=== PATIENT | female | born 1985 | race Caucasian/White ===

== ENCOUNTER 2018-09-16 15:29 | Emergency (ER) | payer OTHER ==
[2018-09-16 16:40] LABS: BASOPHIL % 0.2 % (0.0-0.4); Basophil (Absolute #) 0.02 (0-0.4); Eosinophil % 2.1 % (0.00-5.0); Eosinophil (Absolute #) 0.19 (0-0.5); Granulocyte Absolute (ANC) 5.31 (1.4-6.9); Granulocytes % 58.6 % (36.0-66.0); Hematocrit 37.8 % (35-47); Hemoglobin 12.2 gm/dl (12.0-16.0); Lymphocyte (Absolute #) 2.81 (1.0-4.6); Mean Cell Volume 93.1 fl (78-100); Mean Corpuscular Hgb Concent. 32.3 g/dl (32-36); Mean Platelet Volume 10.6 fl (6-9.5); Monocyte (Absolute #) 0.73 (0.0-1.3); Monocytes % 8.1 % (0.0-12.0); Platelet Count 298 K/mm3 (150-450); Red Blood Count 4.06 M/mm3 (4.1-5.4); Red Cell Distribution Width 13.9 % (11.5-14.0); White Blood Count 9.1 K/mm3 (4.0-10.5)
[2018-09-16 16:46] LABS: Appearance CLEAR (CLEAR); Bilirubin NEGATIVE (NEGATIVE); Blood SMALL Ery/ul (0-5); Epithelial Cells RARE /HPF (FEW); Glucose NEGATIVE (NEGATIVE); Ketones NEGATIVE (NEGATIVE); Leukocyte Esterase NEGATIVE (NEGATIVE); Mucus SLIGHT /HPF (NEGATIVE); Nitrite NEGATIVE (NEGATIVE); Protein,Urine Dip NEGATIVE (Negative); Specific Gravity 1.025 (1.005-1.025); Urobilinogen NEGATIVE mg/dL (0-1)
[2018-09-16 16:57] LABS: ALKALINE PHOSPHATASE 67 U/L (38-126); ANION GAP 12.2 MEQ/L (5-15); BLOOD UREA NITROGEN 16 mg/dL (7-17); CHLORIDE 101 mmol/L (98-107); Calcium 9.3 mg/dL (8.4-10.2); Carbon Dioxide 30 mmol/L (22-30); Glucose 88 mg/dL (74-106); LIPASE 80 U/L (23-300); SGOT/AST 25 U/L (14-36); SGPT/ALT 32 U/L (0-35); SODIUM 140 mmol/L (137-145); Total Protein 7.2 g/dL (6.3-8.2)
[2018-09-16] MEDS ORDERED: TYLENOL EXTRA STRENGTH 500 MG ONE (17:09)
[2018-09-16] MEDS ORDERED: TYLENOL EXTRA STRENGTH 500 MG PO STA (17:09)
--- NOTE | 2018-09-16 18:29 | ERPHSYRPT ---
- History of Present Illness Historian: patient Exam Limitations: no limitations Patient Subjective Stated Complaint: generalized pain in in her abdomen and lower left back for an unspecified amount of time, more pain on the RLQ than the left, diarrhea, denies vomiting Triage Nursing Assessment: Pain in right and left lower and right upper quadrants with palpatation, pain has been off and on for some time now, vitals wnl, rates pain as a 6/10 when she bends over, doesn't appear to be in any distress Timing/Duration: week(s) Activities at Onset: none Quality: aching, cramping, stabbing Abdominal Pain Onset Location: LUQ, LLQ, flank Pain Radiation: RUQ, LUQ, RLQ, LLQ, flank, back Severity of Pain-Max: moderate Severity of Pain-Current: moderate Modifying Factors: Improves With: analgesics Associated Symptoms: nausea <MAYCOL CISNEROS - Last Filed: 09/16/18 18:55> <BARBIE GLASGOW - Last Filed: 09/16/18 19:59> - History of Present Illness Physician History: Pt is a 33 y/o female with a h/o three weeks of abdominal and lower back pain. Pt states, the worse is on the LUQ and LLQ, and some L CVA tenderness, but the pain is spread over abdomen and back. Pt states, has increase in urine out put and she is having increase in amount of urine as well. 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 (MAYCOL CISNEROS) Allergies/Adverse Reactions: No Known Drug Allergies Allergy (Verified 09/16/18 16:01) Home Medications: Propranolol HCl 10 mg PO UD 09/16/18 [History] - Review of Systems Constitutional: No Fever, No Chills Eyes: No Symptoms Ears, Nose, & Throat: No Symptoms Respiratory: No Cough, No Dyspnea Cardiac: No Chest Pain, No Edema, No Syncope Abdominal/Gastrointestinal: Abdominal Pain, Nausea Genitourinary Symptoms: Flank Pain, No Dysuria Musculoskeletal: No Back Pain, No Neck Pain Neurological: No Dizziness, No Focal Weakness, No Sensory Changes <MAYCOL CISNEROS - Last Filed: 09/16/18 18:55> - Past Medical History Pertinent Past Medical History: Yes Cardiac History: Hypertension Other Medical History: PCOS - Past Surgical History Past Surgical History: Yes Female Surgical History: Section - Social History Smoking Status: Smoker, status unknown Exposure to second hand smoke: No Drug Use: none Patient Lives Alone: No - Female History Hx Last Menstrual Period: 09/09/2018 Hx Now: No (tubal) <CHAPOMAYCOL - Last Filed: 09/16/18 18:55> - Physical Exam General Appearance: no apparent distress, alert Eye Exam: PERRL/EOMI, eyes nml inspection Ears, Nose, Throat Exam: normal ENT inspection, pharynx normal, moist mucous membranes Neck Exam: normal inspection, non-tender, supple, full range of motion Respiratory Exam: normal breath sounds, lungs clear, No respiratory distress Cardiovascular Exam: regular rate/rhythm, normal heart sounds Gastrointestinal/Abdomen Exam: soft, tenderness (diffuse) Back Exam: normal inspection, normal range of motion, No CVA tenderness, No vertebral tenderness Extremity Exam: normal inspection, normal range of motion, pelvis stable Neurologic Exam: alert, oriented x 3, cooperative, normal mood/affect, nml cerebellar function, sensation nml, No motor deficits SpO2: 99 <MAYCOL CISNEROS - Last Filed: 09/16/18 18:55> - Nursing Vital Signs Nursing Vital Signs: Initial Vital Signs Temperature 99.0 F 09/16/18 15:45 Pulse Rate 57 L 09/16/18 15:45 Blood Pressure 122/71 09/16/18 15:45 O2 Sat by Pulse Oximetry 99 09/16/18 15:45 Pain Scale Pain Intensity 6 - Course Nursing assessment & vital signs reviewed: Yes <MAYCOL CISNEROS - Last Filed: 09/16/18 18:55> - CT Exams Abdomen/Pelvis CT Interpretation: Discussed w/radiologist (CT of the abdomen and pelvis: Impression6.2 cm left ovarian cyst and 14.5 cm splenomegaly remaining abdomen/ pelvis negative.) <BARBIE GLASGOW - Last Filed: 09/16/18 19:59> Ordered Tests: Active Orders 24 hr Category Date Time Status ABDOMEN AND PELVIS W&WO CONTRA [CT] Stat Exams 09/16/18 18:38 Taken CBC W DIFF Stat Lab 09/16/18 16:37 Completed CMP Stat Lab 09/16/18 16:37 Completed HCG QUALITATIVE,SERUM Stat Lab 09/16/18 Completed LIPASE Stat Lab 09/16/18 16:37 Completed UA W/RFX UR CULTURE Stat Lab 09/16/18 16:29 Completed Medication Summary Generic Name Dose Route Start Last Admin Trade Name Freq PRN Reason Stop Dose Admin Naproxen 500 mg 09/16/18 19:58 Naprosyn 500 Mg PO 09/16/18 19:59 STAT ONE Discontinued Medications Generic Name Dose Route Start Last Admin Trade Name Freq PRN Reason Stop Dose Admin Acetaminophen 1,000 mg 09/16/18 17:09 09/16/18 17:10 Tylenol Extra Strength 500 Mg PO 09/16/18 17:10 1,000 mg STAT STA Administration Acetaminophen Confirm 09/16/18 17:09 Tylenol Extra Strength 500 Mg Administered 09/16/18 17:10 Dose 1,000 mg .ROUTE .[employer] Lab/Rad Data: Laboratory Result Diagrams 09/16/18 16:37 09/16/18 16:37 Laboratory Results 09/16/18 09/16/18 09/16/18 Range/Units Unknown 16:37 16:37 WBC 9.1 (4.0-10.5) K/mm3 RBC 4.06 L (4.1-5.4) M/mm3 Hgb 12.2 (12.0-16.0) gm/dl Hct 37.8 (35-47) % MCV 93.1 (78-100) fl MCH 30.0 (26-32) pg MCHC 32.3 (32-36) g/dl RDW 13.9 (11.5-14.0) % Plt Count 298 (150-450) K/mm3 MPV 10.6 H (6-9.5) fl Gran % 58.6 (36.0-66.0) % Eos # (Auto) 0.19 (0-0.5) Absolute Lymphs (auto) 2.81 (1.0-4.6) Absolute Monos (auto) 0.73 (0.0-1.3) Lymphocytes % 31.0 (24.0-44.0) % Monocytes % 8.1 (0.0-12.0) % Eosinophils % 2.1 (0.00-5.0) % Basophils % 0.2 (0.0-0.4) % Absolute Granulocytes 5.31 (1.4-6.9) Basophils # 0.02 (0-0.4) Sodium 140 (137-145) mmol/L Potassium 4.0 (3.5-5.1) mmol/L Chloride 101 (98-107) mmol/L Carbon Dioxide 30 (22-30) mmol/L Anion Gap 12.2 (5-15) MEQ/L BUN 16 (7-17) mg/dL Creatinine 0.70 (0.52-1.04) mg/dL Estimated GFR > 60.0 ML/MIN Glucose 88 (74-106) mg/dL Calcium 9.3 (8.4-10.2) mg/dL Total Bilirubin 0.30 (0.2-1.3) mg/dL AST 25 (14-36) U/L ALT 32 (0-35) U/L Alkaline Phosphatase 67 (38-126) U/L Serum Total Protein 7.2 (6.3-8.2) g/dL Albumin 4.0 (3.5-5.0) g/dL Lipase 80 (23-300) U/L Serum , Qual NEGATIVE (Negative) Urine Color (YELLOW) Urine Appearance (CLEAR) Urine pH (5-6) Ur Specific [place] (1.005-1.025) Urine Protein (Negative) Urine Ketones (NEGATIVE) Urine Blood (0-5) Celso/ul Urine Nitrite (NEGATIVE) Urine Bilirubin (NEGATIVE) Urine Urobilinogen (0-1) mg/dL Ur Leukocyte Esterase (NEGATIVE) Urine WBC (Auto) (0-5) /HPF Urine RBC (Auto) (0-2) /HPF U Epithel Cells (Auto) (FEW) /HPF Urine Bacteria (Auto) (NEGATIVE) /HPF Urine Mucus (Auto) (NEGATIVE) /HPF Urine Culture Reflexed (NO) Urine Glucose (NEGATIVE) mg/dL 09/16/18 Range/Units 16:29 WBC (4.0-10.5) K/mm3 RBC (4.1-5.4) M/mm3 Hgb (12.0-16.0) gm/dl Hct (35-47) % MCV (78-100) fl MCH (26-32) pg MCHC (32-36) g/dl RDW (11.5-14.0) % Plt Count (150-450) K/mm3 MPV (6-9.5) fl Gran % (36.0-66.0) % Eos # (Auto) (0-0.5) Absolute Lymphs (auto) (1.0-4.6) Absolute Monos (auto) (0.0-1.3) Lymphocytes % (24.0-44.0) % Monocytes % (0.0-12.0) % Eosinophils % (0.00-5.0) % Basophils % (0.0-0.4) % Absolute Granulocytes (1.4-6.9) Basophils # (0-0.4) Sodium (137-145) mmol/L Potassium (3.5-5.1) mmol/L Chloride (98-107) mmol/L Carbon Dioxide (22-30) mmol/L Anion Gap (5-15) MEQ/L BUN (7-17) mg/dL Creatinine (0.52-1.04) mg/dL Estimated GFR ML/MIN Glucose (74-106) mg/dL Calcium (8.4-10.2) mg/dL Total Bilirubin (0.2-1.3) mg/dL AST (14-36) U/L ALT (0-35) U/L Alkaline Phosphatase (38-126) U/L Serum Total Protein (6.3-8.2) g/dL Albumin (3.5-5.0) g/dL Lipase (23-300) U/L Serum , Qual (Negative) Urine Color YELLOW (YELLOW) Urine Appearance CLEAR (CLEAR) Urine pH 6.0 (5-6) Ur Specific [place] 1.025 (1.005-1.025) Urine Protein NEGATIVE (Negative) Urine Ketones NEGATIVE (NEGATIVE) Urine Blood SMALL (0-5) Celso/ul Urine Nitrite NEGATIVE (NEGATIVE) Urine Bilirubin NEGATIVE (NEGATIVE) Urine Urobilinogen NEGATIVE (0-1) mg/dL Ur Leukocyte Esterase NEGATIVE (NEGATIVE) Urine WBC (Auto) 3-5 (0-5) /HPF Urine RBC (Auto) NONE (0-2) /HPF U Epithel Cells (Auto) RARE (FEW) /HPF Urine Bacteria (Auto) NONE (NEGATIVE) /HPF Urine Mucus (Auto) SLIGHT (NEGATIVE) /HPF Urine Culture Reflexed NO (NO) Urine Glucose NEGATIVE (NEGATIVE) mg/dL - Progress Progress: unchanged <MAYCOL CISNEROS - Last Filed: 09/16/18 18:55> <BARBIE GLASGOW - Last Filed: 09/16/18 19:59> - Progress Progress Note: 09/16/18 18:43 Pt had CBC, CMP and UA that were all normal, with no leukocytosis or signs of UTI. CT of te Abdomen w and wo contrast was ordered. 09/16/18 18:55 Pt was signed out to Dr Glasgow. (MAYCOL CISNEROS) 09/16/18 19:51 33-year-old white female previously seen by Dr. Cisneros patient is complaining of generalized pain in her abdomen and lower back for unspecified amount of time approximately 3 weeks she has the pain is worse on the left upper quadrant and left lower quadrant and some left CVA tenderness but then it spreads across her abdomen and back patient with some tenderness in the left lower quadrant and the left upper quadrant. Patient was given Tylenol by Dr. Cisneros patient has been getting up and down in going to the bathroom without problems she does not appear to be in acute distress Patient's labs white blood cell 9.1 hemoglobin 12.2 hematocrit 37.8 platelets 298 Chemistry sodium 140 potassium 4.0 chloride 101 bicarbonate 30 BUN 16 creatinine 0.7 glucose is 88 patient's urinalysis remarkable for 3-5 white cells negative nitrites patient with a CT of the abdomen which is remarkable for is 6.2 cm left ovarian cyst and a 14.5 cm splenomegaly remaining abdomen and pelvis are negative. Impression 1 left lower quadrant and left upper quadrant abdominal pain. 2. 6 cm left ovarian cyst. 3.splenomegaly. Plan patient is already being given Tylenol Will give patient Naprosyn 500 mg orally 1. Will write a prescription for Naprosyn 500 mg orally twice a day #10. Patient may also take Tylenol every 4 hours. Patient has been advised to follow-up with her family doctor or FOOT DRILL OPERATOR physician a list of local physicians will be provided to her. (BARBIE GLASGOW) <MAYCOL CISNEROS - Last Filed: 09/16/18 18:55> - Departure Departure Disposition: Home Critical Care Time: No <BARBIE GLASGOW - Last Filed: 09/16/18 19:59> - Departure Clinical Impression: Left ovarian cyst, Splenomegaly Abdominal pain Qualifiers: Abdominal location: left lower quadrant Qualified Code(s): R10.32 - Left lower quadrant pain Condition: Fair Referrals: DOCTOR,NO FAMILY [Primary Care Provider] - Additional Instructions: Return home. Plenty of fluids clear fluids only 24-48 hours if abdominal pain nausea or vomiting. Naprosyn 500 mg orally twice a day with food as needed for pain. Tylenol every 4 hours as needed for pain. No contact sports or contact activities. Follow-up with your family doctor and/or your FOOT DRILL OPERATOR physician (list). Return for acute distress or for severe symptoms. Prescriptions: Naproxen 500 mg [Naprosyn 500 MG] 500 mg PO BIDPRN PRN #10 tablet PRN Reason: abdominal pain
[2018-09-16 19:52] VITALS: O2SAT 97
[2018-09-16] MEDS ORDERED: Naprosyn 500 MG PO ONE (19:58)
[2018-09-16 20:15] VITALS: BP 133/70; PULSE 62
--- NOTE | 2018-09-17 08:38 | XRAY ---
Indication: Left lower pelvic/back pain one month. Bloating. History of polycystic ovary syndrome. Multiple contiguous axial images obtained through the abdomen and pelvis prior to and following 80 cc Isovue 370 contrast. Enteric contrast also used. Comparison: None Lung bases are clear. Heart is not enlarged. Noncontrasted images are negative for pathologic visceral calcifications/calculi. Contrasted stomach and bowel loops appear nonobstructed. Normal appendix. Mild diffuse scattered colonic fecal debris throughout. 6.2 cm left ovary cyst. No free fluid/air. Spleen is enlarged measuring 14.5 cm in greatest axial dimension. Postcontrast images demonstrate normal visceral enhancement and renal excretion. Remaining liver, gallbladder, pancreas, spleen, adrenal glands, kidneys, ureters, bladder, uterus, and aorta appear unremarkable. No pathologic retroperitoneal lymphadenopathy. Osseous structures intact. No ventral or inguinal hernias. Impression: 1. 6.2 cm left ovary cyst. 2. Incidental splenomegaly and mild fecal stasis. 3. Remaining CT abdomen/pelvis with and without contrast exam is negative. CT DI 23.68
== END 2018-09-16 20:32 | disposition home or self-care (01) ==
LOC: ED 15:29
DX: N83.202 Unspecified ovarian cyst, left side (principal); R10.32 Left lower quadrant pain
CPT/HCPCS: 36415; 74178; 80053; 81001; 81025; 83690; 85025; 99284; A9270-GY

== ENCOUNTER 2020-10-25 10:53 | Emergency (ER) | payer OTHER ==
[2020-10-25 11:09] VITALS: PULSE 72
--- NOTE | 2020-10-25 11:24 | ERPHSYRPT ---
- History of Present Illness Historian: patient Patient Subjective Stated Complaint: pt here for urgency, and fregency of u rnination. co lower abd cramping for 2 days Triage Nursing Assessment: pt alert, resp easy ,skin w/d/p. abd soft. Physician History: 35yo wf w urinary frequency/urgency/suprapubic cramping x2 days wo dysuria/hematuria/fever. She denies N/V/D/fever. Pt has chronic back pain and has had a BTL. Timing/Duration: other (2 days) Quality: cramping Abdominal Pain Onset Location: suprapubic Pain Radiation: no radiation Severity of Pain-Max: mild Severity of Pain-Current: mild Modifying Factors: Improves With: nothing Associated Symptoms: back, No chest pain, No diaphoresis, No diarrhea, No fever/chills, No fatigue, No headache, No heartburn, No loss of appetite, No nausea, No neck pain, No rash, No shortness of breath, No syncope, No vomiting, No weakness Previous symptoms: no prior history Allergies/Adverse Reactions: No Known Drug Allergies Allergy (Verified 10/25/20 11:09) Home Medications: Propranolol HCl 10 mg PO UD 09/16/18 [History] Metformin HCl 500 mg [Glucophage 500 MG] 1 ea DAILY 10/25/20 [History] cloNIDine HCL [Clonidine HCl] 1 ea DAILY 10/25/20 [History] Hx Tetanus, Diphtheria Vaccination/Date Given: No Hx Influenza Vaccination/Date Given: No Hx Pneumococcal Vaccination/Date Given: No Immunizations Up to Date: Yes Travel Risk - International Travel Have you traveled outside of the country in past 3 weeks: No - Coronavirus Screening Are you exhibiting any of the following symptoms?: No Close contact with a COVID-19 positive Pt in past 14-21 Days: No - Vaccine Status Have you recieved a Covid-19 vaccination: No - Review of Systems Constitutional: No Symptoms Eyes: No Symptoms Ears, Nose, & Throat: No Symptoms Respiratory: No Symptoms Cardiac: No Symptoms Abdominal/Gastrointestinal: No Symptoms, Abdominal Pain Genitourinary Symptoms: No Symptoms, Frequency, Urgency Musculoskeletal: No Symptoms Skin: No Symptoms Neurological: No Symptoms Psychological: No Symptoms Endocrine: No Symptoms Hematologic/Lymphatic: No Symptoms Immunological/Allergic: No Symptoms - Past Medical History Pertinent Past Medical History: Yes Cardiac History: Hypertension Other Medical History: PCOS - Past Surgical History Past Surgical History: Yes Female Surgical History: Section, Tubal Ligation - Social History Smoking Status: Never smoker Exposure to second hand smoke: No Drug Use: none Patient Lives Alone: No Significant Family History: no pertinent family hx - Female History Hx Last Menstrual Period: now Hx Now: No - Nursing Vital Signs Nursing Vital Signs: Initial Vital Signs Temperature 96.8 F 10/25/20 11:04 Pulse Rate 72 10/25/20 11:04 Respiratory Rate 18 10/25/20 11:04 Blood Pressure 131/74 10/25/20 11:04 O2 Sat by Pulse Oximetry 97 10/25/20 11:04 Pain Scale Pain Intensity 2 - Physical Exam General Appearance: no apparent distress Eye Exam: PERRL/EOMI, eyes nml inspection Ears, Nose, Throat Exam: normal ENT inspection, TMs normal, pharynx normal, moist mucous membranes Neck Exam: normal inspection, non-tender, supple, full range of motion, mass, No meningismus Respiratory Exam: normal breath sounds, lungs clear, airway intact, No respi ratory distress Cardiovascular Exam: regular rate/rhythm, normal heart sounds, No murmur Gastrointestinal/Abdomen Exam: soft, tenderness (Morbidly obese/Mild suprapubic TTP, no guarding or rebound) Pelvic Exam: not done Back Exam: normal inspection, normal range of motion, No CVA tenderness, No vert ebral tenderness Extremity Exam: normal inspection, normal range of motion Neurologic Exam: alert, oriented x 3, cooperative, neurology epilepsy physician II-XII nml as tested, normal mood/affect Skin Exam: normal color, warm, dry, No rash Lymphatic Exam: No adenopathy SpO2 Interpretation: normal SpO2: 97 O2 Delivery: Room Air - Course Nursing assessment & vital signs reviewed: Yes - CT Exams Abdomen/Pelvis CT Interpretation: Discussed w/radiologist (Known L ovarian cyst, slightly larger) Ordered Tests: Active Orders 24 hr Category Date Time Status ABDOMEN AND PELVIS W/0 CONTRAS [CT] Stat Exams 10/25/20 13:00 Completed AMYLASE Stat Lab 10/25/20 12:10 Completed CBC W DIFF Stat Lab 10/25/20 12:10 Completed CMP Stat Lab 10/25/20 12:10 Completed HCG,QUALITATIVE URINE Stat Lab 10/25/20 11:23 Completed LIPASE Stat Lab 10/25/20 12:10 Completed UA W/RFX UR CULTURE Stat Lab 10/25/20 11:23 Completed Medication Summary Discontinued Medications Generic Name Dose Route Start Last Admin Trade Name Jayla PRN Reason Stop Dose Admin Ketorolac Tromethamine 60 mg 10/25/20 13:16 10/25/20 13:32 Toradol 30 Mg Injection IM 10/25/20 13:17 60 mg STAT ONE Administration Ketorolac Tromethamine Confirm 10/25/20 13:29 Toradol 30 Mg Injection Administered 10/25/20 13:30 Dose 60 mg .ROUTE .[employer]-MED ONE Lab/Rad Data: Laboratory Result Diagrams 10/25/20 12:10 10/25/20 12:10 Laboratory Results 10/25/20 10/25/20 10/25/20 Range/Units 12:10 12:10 11:23 WBC 7.7 (4.0-10.5) K/mm3 RBC 4.38 (4.1-5.4) M/mm3 Hgb 13.2 (12.0-16.0) gm/dl Hct 41.1 (35-47) % MCV 93.8 (78-100) fl MCH 30.1 (26-32) pg MCHC 32.1 (32-36) g/dl RDW 13.6 (11.5-14.0) % Plt Count 318 (150-450) K/mm3 MPV 10.5 (7.5-11.0) fl Gran % 64.0 (36.0-66.0) % Eos # (Auto) 0.17 (0-0.5) Absolute Lymphs (auto) 1.99 (1.0-4.6) Absolute Monos (auto) 0.58 (0.0-1.3) Lymphocytes % 25.9 (24.0-44.0) % Monocytes % 7.6 (0.0-12.0) % Eosinophils % 2.2 (0.00-5.0) % Basophils % 0.3 (0.0-0.4) % Absolute Granulocytes 4.91 (1.4-6.9) Basophils # 0.02 (0-0.4) Sodium 138 (137-145) mmol/L Potassium 4.6 (3.5-5.1) mmol/L Chloride 100 (98-107) mmol/L Carbon Dioxide 31 H (22-30) mmol/L Anion Gap 12.0 (5-15) MEQ/L BUN 16 (7-17) mg/dL Creatinine 0.74 (0.52-1.04) mg/dL Estimated GFR > 60.0 ML/MIN Glucose 97 (74-106) mg/dL Calcium 9.6 (8.4-10.2) mg/dL Total Bilirubin 0.30 (0.2-1.3) mg/dL AST 31 (14-36) U/L ALT 31 (0-35) U/L Alkaline Phosphatase 68 (38-126) U/L Serum Total Protein 7.5 (6.3-8.2) g/dL Albumin 4.3 (3.5-5.0) g/dL Amylase 38 (30-110) U/L Lipase 120 (23-300) U/L Urine Color (YELLOW) Urine Appearance (CLEAR) Urine pH (5-6) Ur Specific [place] (1.005-1.025) Urine Protein (Negative) Urine Ketones (NEGATIVE) Urine Blood (0-5) Celso/ul Urine Nitrite (NEGATIVE) Urine Bilirubin (NEGATIVE) Urine Urobilinogen (0-1) mg/dL Ur Leukocyte Esterase (NEGATIVE) Urine WBC (Auto) (0-5) /HPF Urine RBC (Auto) (0-2) /HPF U Epithel Cells (Auto) (FEW) /HPF Urine Bacteria (Auto) (NEGATIVE) /HPF Urine Mucus (Auto) (NEGATIVE) /HPF Urine Culture Reflexed (NO) Urine Glucose (NEGATIVE) mg/dL Urine HCG, Qual NEGATIVE (Negative) 10/25/20 Range/Units 11:23 WBC (4.0-10.5) K/mm3 RBC (4.1-5.4) M/mm3 Hgb (12.0-16.0) gm/dl Hct (35-47) % MCV (78-100) fl MCH (26-32) pg MCHC (32-36) g/dl RDW (11.5-14.0) % Plt Count (150-450) K/mm3 MPV (7.5-11.0) fl Gran % (36.0-66.0) % Eos # (Auto) (0-0.5) Absolute Lymphs (auto) (1.0-4.6) Absolute Monos (auto) (0.0-1.3) Lymphocytes % (24.0-44.0) % Monocytes % (0.0-12.0) % Eosinophils % (0.00-5.0) % Basophils % (0.0-0.4) % Absolute Granulocytes (1.4-6.9) Basophils # (0-0.4) Sodium (137-145) mmol/L Potassium (3.5-5.1) mmol/L Chloride (98-107) mmol/L Carbon Dioxide (22-30) mmol/L Anion Gap (5-15) MEQ/L BUN (7-17) mg/dL Creatinine (0.52-1.04) mg/dL Estimated GFR ML/MIN Glucose (74-106) mg/dL Calcium (8.4-10.2) mg/dL Total Bilirubin (0.2-1.3) mg/dL AST (14-36) U/L ALT (0-35) U/L Alkaline Phosphatase (38-126) U/L Serum Total Protein (6.3-8.2) g/dL Albumin (3.5-5.0) g/dL Amylase (30-110) U/L Lipase (23-300) U/L Urine Color YELLOW (YELLOW) Urine Appearance CLEAR (CLEAR) Urine pH 6.0 (5-6) Ur Specific [place] 1.017 (1.005-1.025) Urine Protein NEGATIVE (Negative) Urine Ketones NEGATIVE (NEGATIVE) Urine Blood MODERATE (0-5) Celso/ul Urine Nitrite NEGATIVE (NEGATIVE) Urine Bilirubin NEGATIVE (NEGATIVE) Urine Urobilinogen NEGATIVE (0-1) mg/dL Ur Leukocyte Esterase NEGATIVE (NEGATIVE) Urine WBC (Auto) 0-2 (0-5) /HPF Urine RBC (Auto) 0-2 (0-2) /HPF U Epithel Cells (Auto) RARE (FEW) /HPF Urine Bacteria (Auto) FEW (NEGATIVE) /HPF Urine Mucus (Auto) SLIGHT (NEGATIVE) /HPF Urine Culture Reflexed NO (NO) Urine Glucose NEGATIVE (NEGATIVE) mg/dL Urine HCG, Qual (Negative) - Progress Progress Note: 10/25/20 13:17 60mg IM Toradol 10/25/20 22:07 Pt's pain improved before discharge. Follow up recommended w Ob-medical assistant ob gyn. 10/25/20 22:08 Will treat w Macrobid since pt complains of frequency/urgency. Counseled pt/family regarding: lab results, diagnosis, need for follow-up, rad r esults - Departure Departure Disposition: Home Clinical Impression: Ovarian cyst, Cystitis Condition: Stable Critical Care Time: No Referrals: DOCTOR,NO FAMILY [Primary Care Provider] - Instructions: Acute Abdomen (Belly Pain), Adult (DC), Ovarian Cyst (DC), Acute Cystitis (DC) Additional Instructions: Motrin and/or tylenol for pain Follow up with your OB-Energy Engineer Start macrobid twice a day for 5 days Return to ER for increasing pain or temperature greater than 100.5 Prescriptions: Nitrofurantoin Monohyd/M-Cryst [Macrobid 100 mg Capsule] 100 mg PO BID #10 capsule
[2020-10-25 11:53] LABS: Appearance CLEAR (CLEAR); Bilirubin NEGATIVE (NEGATIVE); Blood MODERATE Ery/ul (0-5); Epithelial Cells RARE /HPF (FEW); Glucose NEGATIVE (NEGATIVE); Ketones NEGATIVE (NEGATIVE); Leukocyte Esterase NEGATIVE (NEGATIVE); Mucus SLIGHT /HPF (NEGATIVE); Nitrite NEGATIVE (NEGATIVE); Protein,Urine Dip NEGATIVE (Negative); Specific Gravity 1.017 (1.005-1.025); Urobilinogen NEGATIVE mg/dL (0-1)
[2020-10-25 11:54] LABS: RBC 0-2 /HPF (0-2); WBC 0-2 /HPF (0-5)
[2020-10-25 11:55] LABS: Bacteria FEW /HPF (NEGATIVE)
[2020-10-25 12:16] LABS: Absolute Neutrophil Ct (ANC) 4.91 (1.4-6.9); BASOPHIL % 0.3 % (0.0-0.4); Basophil (Absolute #) 0.02 (0-0.4); Eosinophil % 2.2 % (0.00-5.0); Eosinophil (Absolute #) 0.17 (0-0.5); Hematocrit 41.1 % (35-47); Hemoglobin 13.2 gm/dl (12.0-16.0); Lymphocyte (Absolute #) 1.99 (1.0-4.6); Lymphocytes % 25.9 % (24.0-44.0); Mean Cell Volume 93.8 fl (78-100); Mean Corpuscular Hemoglobin 30.1 pg (26-32); Mean Corpuscular Hgb Concent. 32.1 g/dl (32-36); Mean Platelet Volume 10.5 fl (7.5-11.0); Monocyte (Absolute #) 0.58 (0.0-1.3); Monocytes % 7.6 % (0.0-12.0); Platelet Count 318 K/mm3 (150-450); Red Blood Count 4.38 M/mm3 (4.1-5.4); Red Cell Distribution Width 13.6 % (11.5-14.0); White Blood Count 7.7 K/mm3 (4.0-10.5)
[2020-10-25 12:27] LABS: ALBUMIN 4.3 g/dL (3.5-5.0); ALKALINE PHOSPHATASE 68 U/L (38-126); AMYLASE 38 U/L (30-110); BLOOD UREA NITROGEN 16 mg/dL (7-17); CHLORIDE 100 mmol/L (98-107); Calcium 9.6 mg/dL (8.4-10.2); Carbon Dioxide 31 mmol/L (22-30); Creatinine 1 0.74 mg/dL (0.52-1.04); EST GLOMERULAR FILTRATION RATE > 60.0 ML/MIN; Glucose 97 mg/dL (74-106); LIPASE 120 U/L (23-300); Potassium 4.6 mmol/L (3.5-5.1); SGOT/AST 31 U/L (14-36); SGPT/ALT 31 U/L (0-35); SODIUM 138 mmol/L (137-145); Total Protein 7.5 g/dL (6.3-8.2)
[2020-10-25] MEDS ORDERED: TORAdol 30 mg Injection IM ONE (13:16)
--- NOTE | 2020-10-25 13:19 | XRAY ---
Indication: Suprapubic pain. Diarrhea. Multiple contiguous axial images obtained through the abdomen and pelvis without contrast. Comparison: September 16, 2018. Lung bases remain clear of infiltrate or effusion. Heart not enlarged. Noncontrasted stomach and bowel loops are nonobstructed with normal appendix. Left ovary again demonstrates 7.6 cm cyst, previously 6.2 cm. No free fluid/air. Spleen remains enlarged measuring 14 cm. Remaining liver, gallbladder, pancreas, spleen, adrenal glands, kidneys, ureters, bladder, uterus, and aorta are unremarkable for noncontrast exam. Osseous structures intact. Impression: 1. Enlarging 7.6 cm left ovary cyst. 2. Again incidental splenomegaly. 3. Remaining CT abdomen/pelvis without contrast exam is negative.
[2020-10-25] MEDS ORDERED: TORAdol 30 mg Injection ONE (13:29)
[2020-10-25 13:55] VITALS: BP 127/82
[2020-10-25 22:09] VITALS: O2SAT 97
== END 2020-10-25 13:53 | disposition home or self-care (01) ==
LOC: ED 10:53
DX: N30.90 Cystitis, unspecified without hematuria (principal); B96.89 Other specified bacterial agents as the cause of diseases classified elsewhere
CPT/HCPCS: 36415; 74176; 80053; 81001; 82150; 83690; 84703; 85025; 96372; 99284; J1885

== ENCOUNTER 2021-02-15 01:30 | Emergency (ER) | payer OTHER ==
--- NOTE | 2021-02-15 02:04 | ERPHSYRPT ---
- History of Present Illness Time Seen by Provider: 02/15/21 01:40 Source: patient Exam Limitations: no limitations Patient Subjective Stated Complaint: pt states "I was walking down stairs and missed the last couple of steps and fell." Triage Nursing Assessment: pt came into the er via ambulance; pt is axo x4; c/o left ankle injury; pt states 8/10 pain to left ankle; pt states that she fell down a couple stairs; pt has limited ROM to left ankle; good cap refill to LLE; swelling present to left ankle; strong left pedal pulse; hypertension Physician History: Patient is a 36-year-old female presents to our ED for evaluation of left ankle pain. Patient states she was descending steps at her home when she missed a step and fell down 2 steps. Patient states she inverted her left ankle. The fall was not associated with any neuro or cardiovascular symptomology. No chest pain or shortness of breath. No dizziness. No associated numbness tingling or weakness. Pain described as an ache that is localized primarily lateral aspect left ankle. Pain worse with movement and weightbearing. Palpation along the ATFL ligament reproduces symptoms as well. No other injuries reported. Pain rated upon weightbearing. No BHT or LOC. No neck pain. Cervical spine cleared clinically. Symptoms are mild to moderate in intensity. Weightbearing worsens symptoms. Rest improves symptoms. Patient voices no other complaints concerns at this time. Method of Injury: fell, twisted Occurred: just prior to arrival Quality: constant Severity of Pain-Max: moderate Severity of Pain-Current: mild Lower Extremities Pain: ankle: left Modifying Factors: Improves With: nothing Associated Symptoms: none Allergies/Adverse Reactions: No Known Drug Allergies Allergy (Verified 02/15/21 01:33) Home Medications: Propranolol HCl 10 mg PO UD 09/16/18 [History] Metformin HCl 500 mg [Glucophage 500 MG] 1 ea DAILY 10/25/20 [History] cloNIDine HCL [Clonidine HCl] 1 ea DAILY 10/25/20 [History] Hx Tetanus, Diphtheria Vaccination/Date Given: Yes Hx Influenza Vaccination/Date Given: No Hx Pneumococcal Vaccination/Date Given: No Travel Risk - International Travel Have you traveled outside of the country in past 3 weeks: No - Coronavirus Screening Are you exhibiting any of the following symptoms?: No Close contact with a COVID-19 positive Pt in past 14-21 Days: No - Vaccine Status Have you recieved a Covid-19 vaccination: No - Review of Systems Constitutional: No Symptoms, No Fever, No Chills Eyes: No Symptoms Ears, Nose, & Throat: No Symptoms Respiratory: No Symptoms, No Cough, No Dyspnea Cardiac: No Symptoms, No Chest Pain, No Edema, No Syncope Abdominal/Gastrointestinal: No Symptoms, No Abdominal Pain, No Nausea, No Vomiting, No Diarrhea Genitourinary Symptoms: No Symptoms, No Dysuria Musculoskeletal: No Symptoms, No Back Pain, No Neck Pain Skin: No Symptoms, No Rash Neurological: No Symptoms, No Dizziness, No Focal Weakness, No Sensory Changes Psychological: No Symptoms Endocrine: No Symptoms Hematologic/Lymphatic: No Symptoms Immunological/Allergic: No Symptoms All Other Systems: Reviewed and Negative - Past Medical History Pertinent Past Medical History: Yes Cardiac History: Hypertension Other Medical History: PCOS, enlarged spleen - Past Surgical History Past Surgical History: Yes Female Surgical History: Section, Tubal Ligation Other Surgical History: cyst removed off ovary - Social History Smoking Status: Former smoker Exposure to second hand smoke: No Drug Use: none Patient Lives Alone: No Significant Family History: no pertinent family hx - Female History Hx Now: No - Nursing Vital Signs Nursing Vital Signs: Initial Vital Signs Temperature 98.1 F 02/15/21 01:34 Pulse Rate 65 02/15/21 01:34 Respiratory Rate 20 02/15/21 01:34 Blood Pressure 149/105 02/15/21 01:34 O2 Sat by Pulse Oximetry 98 02/15/21 01:34 Pain Scale Pain Intensity 8 - Physical Exam General Appearance: no apparent distress, alert Eyes, Ears, Nose, Throat Exam: normal ENT inspection, TMs normal, moist mucous membranes Neck Exam: normal inspection, non-tender, supple Cardiovascular/Respiratory Exam: chest non-tender, normal breath sounds, regular rate/rhythm, no respiratory distress Gastrointestinal/Abdominal Exam: non-tender, guarding Back Exam: normal inspection, No vertebral tenderness Hips Exam: bilateral: non-tender, normal inspection, normal range of motion, no evidence of injury Legs Exam: bilateral leg: non-tender, normal inspection, normal range of motion, no evidence of injury Knees Exam: bilateral knee: non-tender, normal inspection, normal range of sharee on, no evidence of injury Ankle Exam: right ankle: non-tender, normal inspection, normal range of motion, no evidence of injury, left ankle: pain, soft tissue tenderness, swelling, other (Some swelling lateral aspect left ankle. Overlying soft tissue intact. Cap refill less than 2 seconds. Compartments are soft. Palpable PT DP pulse.) Foot Exam: bilateral foot: non-tender, normal inspection, normal range of motion, no evidence of injury Neuro/Tendon Exam: normal sensation, normal motor functions, normal tendon funct ions Mental Status Exam: alert, oriented x 3, cooperative Skin Exam: normal color, warm, dry SpO2 Interpretation: normal SpO2: 98 O2 Delivery: Room Air - Course Nursing assessment & vital signs reviewed: Yes - Radiology Exams Ankle X-ray Interpretation: Interpreted by me (No fractures or dislocations. Soft tissue swelling at area of lateral malleolus. ST otherwise negative. Calcaneus bone cyst.) Ordered Tests: Active Orders 24 hr Category Date Time Status ANKLE (3 VIEWS) Stat Exams 02/15/21 02:02 Taken - Progress Progress: improved Progress Note: X-ray negative for fracture dislocation. It appears patient has an ankle sprain. Patient's pain is over the ATFL ligament. No indication for further work-up. Will discharge home. We will provide patient with bilateral axillary crutches. Toradol intramuscular administered for pain. Patient states that she has tubal ligation and does not need a urine test. Patient voices no other complaints at this time. We will refer patient to orthopedic clinic. Portions of this note were created with voice recognition technology. There may be grammatical, spelling, punctuation or sound alike errors 02/15/21 02:37 02/15/21 02:41 [id number] pain medication as needed for pain control. Counseled pt/family regarding: diagnosis, need for follow-up, rad results - Departure Departure Disposition: Home Clinical Impression: Fall, Ankle sprain Condition: Stable Critical Care Time: No Referrals: DOCTOR,NO FAMILY [Primary Care Provider] - CHASE GLASS DO [ACTIVE STAFF] - Additional Instructions: Discharge/Care Plan RAMIN ROSADO was seen on 02/15/21 in the Emergency Room. The patient was counseled regarding Diagnosis,Lab results, Imaging studies, need for follow up and when to return to the Emergency Room. Prescriptions given: Discharge Note I have spoken with the patient and/or caregivers. I have explained the patient's condition, diagnosis and treatment plan based on the information available to me at this time. I have answered the patient's and/or caregiver's questions and addressed any concerns. The patient and/or caregivers have as good understanding of the patient's diagnosis, condition and treatment plan as can be expected at this point. The vital signs have been stable. The patient's condition is stable and appropriate for discharge from the emergency department. The patient will pursue further outpatient evaluation with the primary care physician or other designated or consulting physician as outlined in the discharge instructions. The patient and/or caregivers are agreeable to this plan of care and follow-up instructions have been explained in detail. The patient and/or caregivers have received these instruction. The patient/and or caregivers are aware that any significant change in condition or worsening of symptoms should prompt an immediate return to this or the closest emergency department or call 911. Outpatient Orders: Ortho Referral Time Frame: 1 Day, Facility: [facility] Hosp, Location: [facility]
[2021-02-15] MEDS ORDERED: TORAdol 30 mg Injection IM ONE (02:36)
[2021-02-15] MEDS ORDERED: TORAdol 30 mg Injection ONE (02:39)
[2021-02-15 02:46] VITALS: BP 130/78; PULSE 63; O2SAT 99
--- NOTE | 2021-02-15 08:49 | XRAY ---
Indication: Pain following fall. 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 No other bony, articular, or soft tissue abnormalities.
== END 2021-02-15 02:55 | disposition home or self-care (01) ==
LOC: ED 01:30
DX: S93.402A Sprain of unspecified ligament of left ankle, initial encounter (principal); W10.8XXA Fall (on) (from) other stairs and steps, initial encounter; M25.572 Pain in left ankle and joints of left foot; Z79.899 Other long term (current) drug therapy; I10 Essential (primary) hypertension
CPT/HCPCS: 73610; 96372; 99284; J1885

== ENCOUNTER 2021-08-03 01:15 | Emergency (ER) | payer OTHER ==
[2021-08-03] MEDS ORDERED: solu-MEDROL 125 MG, Sterile H2O 10 ml 2 ML IM ONE ×2 (01:39)
[2021-08-03] MEDS ORDERED: HYDROCODONE-ACETAMIN 2.5-108/5 ML SOLUTION PO STA (01:39)
[2021-08-03] MEDS ORDERED: Rocephin 1000 MG INJ IM ONE (01:39)
[2021-08-03] MEDS ORDERED: Sterile H2O 10 ml IJ ONE (01:43)
[2021-08-03] MEDS ORDERED: HYDROCODONE-ACETAMIN 2.5-108/5 ML SOLUTION ONE (01:43)
[2021-08-03] MEDS ORDERED: solu-MEDROL ONE (01:43)
[2021-08-03] MEDS ORDERED: Rocephin 1000 MG INJ ONE (01:44)
[2021-08-03] MEDS ORDERED: XYLOCAINE 1% HCL 20 ML MDV ONE (01:45)
--- NOTE | 2021-08-03 01:48 | ERPHSYRPT ---
- History of Present Illness Time Seen by Provider: 08/03/21 01:30 Source: patient Exam Limitations: no limitations Patient Subjective Stated Complaint: Patient c/o left ear pain. States that she was seen at [facility] on Sunday and they diagnosed her with an external ear infection. The hospital prescribed her some ear drops and toradol for pain. Patient indicates that the pain has become worse since that time. Patient states that the pain is a constant throbbing with random sharp, intermittent pains as well. States, "most of the time it feels like I'm under water and I can hear my pulse in my ear." Triage Nursing Assessment: Patient arrived by ambulance to ED. She was able to transfer self from cot to bed without any difficulties. She is alert and oriented and answering questions appropriately. Patient's left ear cannal is very red and swollen with a small amount of yellow drainage noted from that ear. Physician History: This is an obese 36-year-old white female who was brought into the emergency [facility] by ambulance service because of significant left ear pain with drainage. The pain is been present for approximately 4 days and patient sought medical treatment on 08/01/2021. She was placed on ofloxacin eardrops and Toradol for pain. Her symptoms are worsening. She now has throbbing in the ear with cloudy drainage coming from it. Patient has a history of hypertension and anxiety Timing/Duration: days (4) Severity: moderate ENT Location: ear (L) Prearrival Treatment: prescription meds Modifying Factors: Improves With: nothing Associated Symptoms: ear pain (L), ear drainage (Left side cloudy) Allergies/Adverse Reactions: No Known Drug Allergies Allergy (Verified 08/03/21 01:17) Home Medications: Propranolol HCl 10 mg PO UD 09/16/18 [History] cloNIDine HCL [Clonidine HCl] 1 ea DAILY 10/25/20 [History] Ketorolac Trometh 10 mg Tab [TORAdol 10 MG TABLET] 1 tab PO Q8H PRN PRN 08/03/21 [History] Ofloxacin Otic 5 ml [Floxin Otic 5 ML] 08/03/21 [History] Hx Tetanus, Diphtheria Vaccination/Date Given: Yes (Unsure about tetanus) Hx Influenza Vaccination/Date Given: No Hx Pneumococcal Vaccination/Date Given: No Immunizations Up to Date: Yes Travel Risk - International Travel Have you traveled outside of the country in past 3 weeks: No - Coronavirus Screening Are you exhibiting any of the following symptoms?: No Close contact with a COVID-19 positive Pt in past 14-21 Days: No - Vaccine Status Have you recieved a Covid-19 vaccination: No - Review of Systems Constitutional: No Symptoms Eyes: No Symptoms Ears, Nose, & Throat: Ear Pain (Left side), Ear Discharge (Left side), Hearing Changes (Left side decreased hearing) Respiratory: No Symptoms Cardiac: No Symptoms Abdominal/Gastrointestinal: No Symptoms Genitourinary Symptoms: No Symptoms Musculoskeletal: No Symptoms Skin: No Symptoms Neurological: No Symptoms Psychological: No Symptoms Endocrine: No Symptoms Hematologic/Lymphatic: No Symptoms Immunological/Allergic: No Symptoms All Other Systems: Reviewed and Negative - Past Medical History Pertinent Past Medical History: Yes Neurological History: No Pertinent History ENT History: Other Cardiac History: Hypertension Respiratory History: No Pertinent History Endocrine Medical History: No Pertinent History Musculoskeletal History: No Pertinent History GI Medical History: No Pertinent History History: No Pertinent History Psycho-Social History: Anxiety, Depression Female Reproductive Disorders: No Pertinent History Other Medical History: PCOS, enlarged spleen, ear infections - Past Surgical History Past Surgical History: Yes Neuro Surgical History: No Pertinent History Cardiac: No Pertinent History Respiratory: No Pertinent History Gastrointestinal: No Pertinent History Genitourinary: No Pertinent History Musculoskeletal: No Pertinent History Female Surgical History: Section, Tubal Ligation Other Surgical History: cyst removed off ovary - Social History Smoking Status: Former smoker Exposure to second hand smoke: No Drug Use: none Patient Lives Alone: No Significant Family History: no pertinent family hx - Female History Hx Last Menstrual Period: 2-3 weeks ago Hx Now: No - Nursing Vital Signs Nursing Vital Signs: Initial Vital Signs Temperature 98.2 F 08/03/21 01:18 Pulse Rate 80 08/03/21 01:18 Respiratory Rate 20 08/03/21 01:18 Blood Pressure 140/79 08/03/21 01:18 O2 Sat by Pulse Oximetry 95 08/03/21 01:18 Pain Scale Pain Intensity 9 - Physical Exam General Appearance: no apparent distress, alert, anxiety, obese Eye Exam: bilateral eye: normal inspection, PERRL, EOMI Ear Exam: right ear: canal normal, TM normal, left ear: discharge (Cloudy/purulent), swelling, other (Unable to assess secondary to fluid), bilateral ear: auricle normal Nasal Exam: normal inspection Throat Exam: normal, pharynx normal, moist mucus membranes Neck Exam: normal inspection, non-tender, supple, full range of motion Cardiovascular/Respiratory Exam: chest non-tender, no respiratory distress Abdominal Exam: non-tender Neurologic Exam: alert, oriented x 3, cooperative, lead infrastructure architect II-XII nml as tested, normal mood/affect, nml cerebellar function, nml station & gait, sensation nml Skin Exam: normal color, warm, dry SpO2 Interpretation: borderline oxygenation SpO2: 95 O2 Delivery: Room Air - Course Nursing assessment & vital signs reviewed: Yes Ordered Tests: Medication Summary Discontinued Medications Generic Name Dose Route Start Last Admin Trade Name Freq PRN Reason Stop Dose Admin Hydrocodone Bitart/Acetaminophen 10 ml 08/03/21 01:39 Hydrocodone/Acetaminophen 5 Ml Udcup PO 08/03/21 01:40 STAT STA Ceftriaxone Sodium 1,000 mg 08/03/21 01:39 Ceftriaxone Sodium 1000 Mg Inj Vial IM 08/03/21 01:40 STAT ONE Methylprednisolone Sodium 0 mg 08/03/21 01:39 Succinate 125 mg/ Sterile IM 08/03/21 01:40 Water 2 ml STAT ONE - Progress Progress: improved, pain not gone completely Counseled pt/family regarding: diagnosis, need for follow-up - Departure Departure Disposition: Home Clinical Impression: Left acute otitis media Condition: Stable Critical Care Time: No Referrals: DOCTOR,NO FAMILY [Primary Care Provider] - Follow up/PCP as directed Additional Instructions: Stop your antibiotic eardrops. Stop your Toradol. Take your medication as prescribed. Follow-up with your primary care provider in 24 to 48 hours for reevaluation and further management if necessary. Prescriptions: Hydrocodone/Acetaminophen [Hydrocodone-Acetamn 7.5-325/15] 10 ml PO Q8H PRN PRN #120 ml MDD 30 ml PRN Reason: Cough Amoxicillin 500 mg Cap [Amoxil 500 mg] 1,000 mg PO TID 7 Days #42 cap Prednisone 10 mg [Deltasone 10 mg] 10 mg PO TID #12 tablet
[2021-08-03 02:47] VITALS: BP 130/70; PULSE 70; O2SAT 96
== END 2021-08-03 02:49 | disposition home or self-care (01) ==
LOC: ED 01:15
DX: H66.92 Otitis media, unspecified, left ear (principal); H92.02 Otalgia, left ear; H92.12 Otorrhea, left ear; I10 Essential (primary) hypertension; Z79.891 Long term (current) use of opiate analgesic; Z79.52 Long term (current) use of systemic steroids; Z79.899 Other long term (current) drug therapy
CPT/HCPCS: 96372; 99284; J0696; J2930; A9270-GY

== ENCOUNTER 2022-03-21 10:02 | Emergency (ER) | payer OTHER ==
[2022-03-21 10:28] VITALS: BP 128/79; PULSE 58; O2SAT 97
[2022-03-21] MEDS ORDERED: Zofran 4 MG/2 ML VIAL ONE (10:41)
[2022-03-21] MEDS ORDERED: SUBLIMAZE 100 MCG/2 ML ONE (10:41)
[2022-03-21] MEDS ORDERED: Sodium Chloride 0.9% 1000 ML 1,000 ML ONE (10:42)
[2022-03-21] MEDS: Sodium Chloride 0.9% 1000 ML 1,000 ML IV STA (10:43)
[2022-03-21] MEDS: Zofran 4 MG/2 ML VIAL IV ONE (10:44)
[2022-03-21] MEDS: SUBLIMAZE 100 MCG/2 ML IV ONE (10:45)
[2022-03-21 10:49] LABS: Absolute Neutrophil Ct (ANC) 3.82 x10^3/uL (1.4-6.9); Basophil (Absolute #) 0.04 x10^3/uL (0-0.4); Eosinophil % 2.4 % (0.00-5.0); Eosinophil (Absolute #) 0.16 x10^3/uL (0-0.5); Hematocrit 38.2 % (35-47); Hemoglobin 12.4 g/dL (12.0-16.0); Lymphocytes % 32.6 % (24.0-44.0); Mean Cell Volume 91.8 fL (78-100); Mean Corpuscular Hemoglobin 29.8 pg (26-32); Mean Corpuscular Hgb Concent. 32.5 g/dL (32-36); Mean Platelet Volume 10.5 fL (7.5-11.0); Monocytes % 7.4 % (0.0-12.0); Neutrophil % 56.7 % (36.0-66.0); Platelet Count 281 x10^3/uL (150-450); Red Blood Count 4.16 x10^6/uL (4.1-5.4); Red Cell Distribution Width 13.6 % (11.5-14.0); White Blood Count 6.7 x10^3/uL (4.0-10.5)
[2022-03-21 10:52] LABS: ALBUMIN 4.4 g/dL (3.5-5.0); ALKALINE PHOSPHATASE 79 U/L (38-126); AMYLASE 42 U/L (30-110); ANION GAP 9.9 MEQ/L (5-15); BLOOD UREA NITROGEN 12 mg/dL (7-17); CHLORIDE 104 mmol/L (98-107); Calcium 8.7 mg/dL (8.4-10.2); Carbon Dioxide 30 mmol/L (22-30); Creatinine 1 0.62 mg/dL (0.52-1.04); EST GLOMERULAR FILTRATION RATE > 60.0 ML/MIN; Glucose 106 mg/dL (74-106); LIPASE 94 U/L (23-300); SGOT/AST 30 U/L (14-36); SGPT/ALT 25 U/L (0-35); SODIUM 140 mmol/L (137-145); Total Protein 7.9 g/dL (6.3-8.2)
--- NOTE | 2022-03-21 11:30 | XRAY ---
Indication: Chest pain last week. Comparison: None Portable chest demonstrates normal heart, lungs, and bony thorax.
--- NOTE | 2022-03-21 11:34 | XRAY ---
Indication: Left flank pain. History ovarian cysts. Multiple contiguous axial images obtained through the abdomen and pelvis without contrast using renal stone protocol.. Comparison: October 25, 2020 Lung bases demonstrate minimal dependent atelectasis. Heart is not enlarged. No renal calculus or evidence for obstructive uropathy in either system. Noncontrasted stomach and bowel loops nonobstructed again with normal appendix. Continued enlarging midline pelvic cyst today 8.4 cm previously 7.6 cm and again felt to be ovary in etiology. No free fluid/air. Remaining liver, gallbladder, pancreas, spleen, adrenal glands, kidneys, ureters, bladder, uterus, and aorta are unremarkable for noncontrast exam. Osseous structures intact. Impression: 1. Continued negative renal calculus or evidence for obstructive uropathy. 2. Continued enlarging 8.4 cm ovary cyst, previously 7.6 cm. This measured 6.[address] abdomen/pelvis without contrast exam is negative.
[2022-03-21 11:38] LABS: Appearance CLOUDY (CLEAR); Bilirubin NEGATIVE (NEGATIVE); Dipstick done @ ? MAIN LAB; Glucose NEGATIVE (NEGATIVE); Ketones NEGATIVE (NEGATIVE); Nitrite NEGATIVE (NEGATIVE); Protein,Urine Dip 30 (Negative); RBC LARGE Ery/ul (0-5); Specific Gravity >=1.030 (1.005-1.025); Urobilinogen 0.2 mg/dL (0-1)
[2022-03-21 11:43] LABS: RBC >101 /HPF (0-2); Urine Cultured Indicated? YES
--- NOTE | 2022-03-21 12:31 | ERPHSYRPT ---
- History of Present Illness Time Seen by Provider: 03/21/22 10:30 Historian: patient Exam Limitations: no limitations Patient Subjective Stated Complaint: Pt c/o of pain to the left quadrants and left sided back for the past week Triage Nursing Assessment: Pt was brought to the ER by her boyfriend, emilia yoo, rates pain as 8-9/10, pulses normal, hx of PCOS, decreased appetite, walked into the ER with a steady gait, states that she has been urinating a lot lately, doesn't appear to be in any distress Physician History: Patient is a 37-year-old white female who presents with left flank pain which radiates into the left lower quadrant and through to the back. This is been present for 1 week she started her menses 2 days ago she does have a history of PCOS and had a cyst which was supposed to be drained in November but she canceled that procedure. She denies any fever chills sweats she denies any nausea vomiting diarrhea she does report some increased urinary frequency. Timing/Duration: week(s) (2) Activities at Onset: none Quality: stabbing, throbbing Abdominal Pain Onset Location: flank Pain Radiation: LLQ, back Severity of Pain-Max: moderate Severity of Pain-Current: moderate Modifying Factors: Improves With: movement Associated Symptoms: other (Urinary frequency) Previous symptoms: same symptoms as today Allergies/Adverse Reactions: No Known Drug Allergies Allergy (Verified 03/21/22 10:28) Home Medications: cloNIDine HCL [Clonidine HCl] 0.1 mg PO TID 10/25/20 [History] Propranolol HCl [Propranolol HCl ER] 160 mg PO DAILY 03/21/22 [History] Hx Tetanus, Diphtheria Vaccination/Date Given: Yes (Unsure about tetanus) Hx Influenza Vaccination/Date Given: No Hx Pneumococcal Vaccination/Date Given: No Travel Risk - International Travel Have you traveled outside of the country in past 3 weeks: No - Coronavirus Screening Are you exhibiting any of the following symptoms?: No Close contact with a COVID-19 positive Pt in past 14-21 Days: No - Vaccine Status Have you recieved a Covid-19 vaccination: No - Review of Systems Constitutional: No Fever, No Chills Eyes: No Symptoms Ears, Nose, & Throat: No Symptoms Respiratory: No Cough, No Dyspnea Cardiac: No Chest Pain, No Edema, No Syncope Abdominal/Gastrointestinal: Abdominal Pain, No Nausea, No Vomiting, No Diarrhea Genitourinary Symptoms: Frequency, Flank Pain, No Dysuria Musculoskeletal: No Back Pain, No Neck Pain Skin: No Rash Neurological: No Dizziness, No Focal Weakness, No Sensory Changes Psychological: No Symptoms Endocrine: No Symptoms All Other Systems: Reviewed and Negative - Past Medical History Pertinent Past Medical History: Yes Neurological History: No Pertinent History ENT History: Other Cardiac History: Hypertension Respiratory History: No Pertinent History Endocrine Medical History: No Pertinent History Musculoskeletal History: No Pertinent History GI Medical History: No Pertinent History History: No Pertinent History Psycho-Social History: Anxiety, Depression Female Reproductive Disorders: No Pertinent History Other Medical History: PCOS, enlarged spleen, ear infections - Past Surgical History Past Surgical History: Yes Neuro Surgical History: No Pertinent History Cardiac: No Pertinent History Respiratory: No Pertinent History Gastrointestinal: No Pertinent History Genitourinary: No Pertinent History Musculoskeletal: No Pertinent History Female Surgical History: Section, Tubal Ligation Other Surgical History: cyst removed off ovary - Social History Smoking Status: Former smoker Exposure to second hand smoke: No Drug Use: none Patient Lives Alone: No Significant Family History: no pertinent family hx - Female History Hx Last Menstrual Period: 03/20/2022 Hx Now: No - Nursing Vital Signs Nursing Vital Signs: Initial Vital Signs Temperature 97.5 F 03/21/22 10:17 Pulse Rate 58 L 03/21/22 10:17 Blood Pressure 128/79 03/21/22 10:17 O2 Sat by Pulse Oximetry 97 03/21/22 10:17 Pain Scale Pain Intensity 10 - Physical Exam General Appearance: no apparent distress, moderate distress, alert Eye Exam: PERRL/EOMI, eyes nml inspection Ears, Nose, Throat Exam: normal ENT inspection, pharynx normal, moist mucous membranes Neck Exam: normal inspection, non-tender, supple, full range of motion Respiratory Exam: normal breath sounds, lungs clear, No respiratory distress Cardiovascular Exam: regular rate/rhythm, normal heart sounds Gastrointestinal/Abdomen Exam: soft, No tenderness, No mass Back Exam: normal inspection, normal range of motion, CVA tenderness (Right), No vertebral tenderness Extremity Exam: normal inspection, normal range of motion, pelvis stable Neurologic Exam: alert, oriented x 3, cooperative, normal mood/affect, nml cer ebellar function, sensation nml, No motor deficits Skin Exam: normal color, warm, dry SpO2 Interpretation: normal SpO2: 97 O2 Delivery: Room Air - Radiology Exams Chest X-ray Interpretation: Negative - CT Exams Abdomen/Pelvis CT Interpretation: Other (Enlarging ovarian cysts up to 8.4 cm increasing since 2019.) Ordered Tests: Active Orders 24 hr Category Date Time Status IV Insertion STAT Care 03/21/22 10:20 Active ABDOMEN AND PELVIS W/0 CONTRAS [CT] Stat Exams 03/21/22 10:21 Completed CHEST 1 VIEW (PORTABLE) Stat Exams 03/21/22 11:20 Completed AMYLASE Stat Lab 03/21/22 10:37 Completed CBC W DIFF Stat Lab 03/21/22 10:37 Completed CMP Stat Lab 03/21/22 10:37 Completed CULTURE,URINE Stat Lab 03/21/22 10:50 Received LIPASE Stat Lab 03/21/22 10:37 Completed Lactic Acid Stat Lab 03/21/22 10:37 Completed UA W/RFX CULTURE Stat Lab 03/21/22 10:50 Completed Medication Summary Discontinued Medications Generic Name Dose Route Start Last Admin Trade Name Jerryq PRN Reason Stop Dose Admin Fentanyl Citrate 50 mcg 03/21/22 10:20 03/21/22 10:45 Fentanyl Citrate 100 Mcg/2 Ml* Vial IV 03/21/22 10:21 50 mcg STAT ONE Administration Fentanyl Citrate Confirm 03/21/22 10:41 Fentanyl Citrate 100 Mcg/2 Ml* Vial Administered 03/21/22 10:42 Dose 100 mcg .ROUTE .STK-MED ONE Sodium Chloride 1,000 mls @ 999 mls/hr 03/21/22 10:20 03/21/22 11:56 Sodium Chloride 0.9% 1000 Ml IV 03/21/22 11:20 Infused .Q1H1M STA Infusion Sodium Chloride Confirm 03/21/22 10:42 Sodium Chloride 0.9% 1000 Ml Administered 03/21/22 10:43 Dose 1,000 mls @ ud .ROUTE .STK-MED ONE Ondansetron HCl 4 mg 03/21/22 10:20 03/21/22 10:44 Ondansetron Hcl 4 Mg/2 Ml Vial IV 03/21/22 10:21 4 mg STAT ONE Administration Ondansetron HCl Confirm 03/21/22 10:41 Ondansetron Hcl 4 Mg/2 Ml Vial Administered 03/21/22 10:42 Dose 4 mg .ROUTE .STK-MED ONE Lab/Rad Data: Laboratory Result Diagrams 03/21/22 10:37 03/21/22 10:37 Laboratory Results 03/21/22 03/21/22 03/21/22 Range/Units 10:50 10:37 10:37 WBC (4.0-10.5) x10^3/uL RBC (4.1-5.4) x10^6/uL Hgb (12.0-16.0) g/dL Hct (35-47) % MCV (78-100) fL MCH (26-32) pg MCHC (32-36) g/dL RDW (11.5-14.0) % Plt Count (150-450) x10^3/uL MPV (7.5-11.0) fL Gran % (36.0-66.0) % Immature Gran % (Auto) (0.00-0.4) % Nucleat RBC Rel Count (0.00-0.1) % Eos # (Auto) (0-0.5) x10^3/uL Immature Gran # (Auto) (0.00-0.03) x10^3u/L Absolute Lymphs (auto) (1.0-4.6) x10^3/uL Absolute Monos (auto) (0.0-1.3) x10^3/uL Absolute Nucleated RBC (0.00-0.01) x10^3u/L Lymphocytes % (24.0-44.0) % Monocytes % (0.0-12.0) % Eosinophils % (0.00-5.0) % Basophils % (0.0-0.4) % Absolute Granulocytes (1.4-6.9) x10^3/uL Basophils # (0-0.4) x10^3/uL Sodium 140 (137-145) mmol/L Potassium 4.0 (3.5-5.1) mmol/L Chloride 104 (98-107) mmol/L Carbon Dioxide 30 (22-30) mmol/L Anion Gap 9.9 (5-15) MEQ/L BUN 12 (7-17) mg/dL Creatinine 0.62 (0.52-1.04) mg/dL Estimated GFR > 60.0 ML/MIN Glucose 106 (74-106) mg/dL Lactic Acid 0.9 (0.4-2.0) Calcium 8.7 (8.4-10.2) mg/dL Total Bilirubin 0.40 (0.2-1.3) mg/dL AST 30 (14-36) U/L ALT 25 (0-35) U/L Alkaline Phosphatase 79 (38-126) U/L Serum Total Protein 7.9 (6.3-8.2) g/dL Albumin 4.4 (3.5-5.0) g/dL Amylase 42 (30-110) U/L Lipase 94 (23-300) U/L Urinalys Dipstick Clnc MAIN LAB Urine Color BROWN A (YELLOW) Urine Appearance CLOUDY A (CLEAR) Urine pH 6.0 (5-6) Ur Specific Brooten >=1.030 A (1.005-1.025) POC Urine Protein Conf 30 A (Negative) Urine Ketones NEGATIVE (NEGATIVE) Urine Nitrite NEGATIVE (NEGATIVE) Urine Bilirubin NEGATIVE (NEGATIVE) Urine Urobilinogen 0.2 (0-1) mg/dL Urine Leukocytes NEGATIVE (NEGATIVE) Urine WBC (Auto) 6-10 A (0-5) /HPF Urine RBC (Auto) >101 A (0-2) /HPF U Epithel Cells (Auto) NONE (FEW) /HPF Urine Bacteria (Auto) NONE (NEGATIVE) /HPF Urine RBC LARGE A (0-5) Celso/ul Ur Culture Indicated? YES Urine Glucose NEGATIVE (NEGATIVE) mg/dL 03/21/22 Range/Units 10:37 WBC 6.7 (4.0-10.5) x10^3/uL RBC 4.16 (4.1-5.4) x10^6/uL Hgb 12.4 (12.0-16.0) g/dL Hct 38.2 (35-47) % MCV 91.8 (78-100) fL MCH 29.8 (26-32) pg MCHC 32.5 (32-36) g/dL RDW 13.6 (11.5-14.0) % Plt Count 281 (150-450) x10^3/uL MPV 10.5 (7.5-11.0) fL Gran % 56.7 (36.0-66.0) % Immature Gran % (Auto) 0.3 (0.00-0.4) % Nucleat RBC Rel Count 0.0 (0.00-0.1) % Eos # (Auto) 0.16 (0-0.5) x10^3/uL Immature Gran # (Auto) 0.02 (0.00-0.03) x10^3u/L Absolute Lymphs (auto) 2.20 (1.0-4.6) x10^3/uL Absolute Monos (auto) 0.50 (0.0-1.3) x10^3/uL Absolute Nucleated RBC 0.00 (0.00-0.01) x10^3u/L Lymphocytes % 32.6 (24.0-44.0) % Monocytes % 7.4 (0.0-12.0) % Eosinophils % 2.4 (0.00-5.0) % Basophils % 0.6 (0.0-0.4) % Absolute Granulocytes 3.82 (1.4-6.9) x10^3/uL Basophils # 0.04 (0-0.4) x10^3/uL Sodium (137-145) mmol/L Potassium (3.5-5.1) mmol/L Chloride (98-107) mmol/L Carbon Dioxide (22-30) mmol/L Anion Gap (5-15) MEQ/L BUN (7-17) mg/dL Creatinine (0.52-1.04) mg/dL Estimated GFR ML/MIN Glucose (74-106) mg/dL Lactic Acid (0.4-2.0) Calcium (8.4-10.2) mg/dL Total Bilirubin (0.2-1.3) mg/dL AST (14-36) U/L ALT (0-35) U/L Alkaline Phosphatase (38-126) U/L Serum Total Protein (6.3-8.2) g/dL Albumin (3.5-5.0) g/dL Amylase (30-110) U/L Lipase (23-300) U/L Urinalys Dipstick Clnc Urine Color (YELLOW) Urine Appearance (CLEAR) Urine pH (5-6) Ur Specific Brooten (1.005-1.025) POC Urine Protein Conf (Negative) Urine Ketones (NEGATIVE) Urine Nitrite (NEGATIVE) Urine Bilirubin (NEGATIVE) Urine Urobilinogen (0-1) mg/dL Urine Leukocytes (NEGATIVE) Urine WBC (Auto) (0-5) /HPF Urine RBC (Auto) (0-2) /HPF U Epithel Cells (Auto) (FEW) /HPF Urine Bacteria (Auto) (NEGATIVE) /HPF Urine RBC (0-5) Celso/ul Ur Culture Indicated? 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 Prescriptions: Cephalexin Mh 500 mg [Keflex 500 mg] 500 mg PO TID #21 cap Diclofenac Sodium 50 mg [Voltaren 50 mg] 50 mg PO TID 10 Days #30 tablet
== END 2022-03-21 12:57 | disposition home or self-care (01) ==
LOC: ED 10:02
DX: N83.209 Unspecified ovarian cyst, unspecified side (principal); R10.32 Left lower quadrant pain; R35.0 Frequency of micturition; I10 Essential (primary) hypertension; Z79.899 Other long term (current) drug therapy; Z28.310 Unvaccinated for COVID-19
CPT/HCPCS: 36000; 36415; 71045; 74176; 80053; 81015; 82150; 83605; 83690; 85025; 87086; 96360; 96374; 96375; 99284; J2405; J3010

== ENCOUNTER 2022-05-15 10:43 | Emergency (ER) | payer OTHER ==
[2022-05-15 11:21] VITALS: O2SAT 98
[2022-05-15] MEDS ORDERED: MORPHINE SULFATE 2 MG INJ IV ONE (12:07)
[2022-05-15 12:23] LABS: Absolute Neutrophil Ct (ANC) 5.11 x10^3/uL (1.4-6.9); Basophil (Absolute #) 0.05 x10^3/uL (0-0.4); Eosinophil % 3.4 % (0.00-5.0); Eosinophil (Absolute #) 0.28 x10^3/uL (0-0.5); Hematocrit 37.8 % (35-47); Hemoglobin 12.1 g/dL (12.0-16.0); Lymphocytes % 25.5 % (24.0-44.0); Mean Cell Volume 92.2 fL (78-100); Mean Corpuscular Hemoglobin 29.5 pg (26-32); Mean Platelet Volume 9.7 fL (7.5-11.0); Monocyte (Absolute #) 0.66 x10^3/uL (0.0-1.3); Neutrophil % 62.3 % (36.0-66.0); Platelet Count 252 x10^3/uL (150-450); White Blood Count 8.2 x10^3/uL (4.0-10.5)
[2022-05-15] MEDS ORDERED: MORPHINE SULFATE 2 MG INJ ONE (12:29)
[2022-05-15 12:37] LABS: ANION GAP 9.8 MEQ/L (5-15); BLOOD UREA NITROGEN 11 mg/dL (7-17); CHLORIDE 102 mmol/L (98-107); Calcium 8.7 mg/dL (8.4-10.2); Carbon Dioxide 29 mmol/L (22-30); Creatinine 1 0.67 mg/dL (0.52-1.04); EST GLOMERULAR FILTRATION RATE > 60.0 ML/MIN; Glucose 104 mg/dL (74-106); Potassium 3.9 mmol/L (3.5-5.1); SODIUM 137 mmol/L (137-145)
--- NOTE | 2022-05-15 13:07 | XRAY ---
Indication: Right jaw painful knot. Right eye secretions. Multiple contiguous axial images obtained through the neck using 80cc Isovue 370 contrast. Comparison: None Right neck demonstrates multiple enlarged lymph nodes presumed reactive. Largest lymph node is posterior to posterior to right mandible measuring 2.5 x 1.6 x 2.6 cm. Right parotid gland is prominent with stranding favoring parotiditis. Left neck demonstrates subcentimeter benign-appearing lymph nodes. Submandibular glands unremarkable. Major arteries and veins are normal in course and caliber. Thyroid gland enhances homogeneously. Supra and infraglottic airway are widely patent. Normal epiglottis. Visualized osseous structures intact. No suspicious bony lesions or osseous destructive process. Lung apices and base of brain unremarkable. Impression: Right parotiditis with reactive cervical lymphadenopathy.
--- NOTE | 2022-05-15 13:13 | XRAY ---
Indication: Right jaw painful knot. Right eye secretions. Multiple contiguous axial images obtained through the facial bones using 80 cc Isovue 370 contrast. Sagittal and coronal reformatted images obtained. Comparison: None No acute fracture, suspicious bony lesions, or osseous destructive process. Orbits including roof, champagne, and floors intact. Bilateral exophthalmus. No suspicious retro-orbital mass. Paranasal sinuses and nasal passages are pneumatized and clear. Abnormal right parotid gland favoring parotiditis with right cervical lymphadenopathy reported on same-day CT neck exam. Remaining visualized soft tissues including base of brain are unremarkable. Impression: Right parotiditis and right cervical lymphadenopathy reported on same-day CT neck. Bilateral exophthalmus. Remaining CT facial bones with contrast exam is negative.
[2022-05-15 13:31] VITALS: BP 134/75; PULSE 80
--- NOTE | 2022-05-15 13:56 | ERPHSYRPT ---
- History of Present Illness Time Seen by Provider: 05/15/22 11:27 Source: patient Exam Limitations: no limitations Patient Subjective Stated Complaint: pt c/o pain to right eye, jaw and neck. pt states pain has been going on for at least 7 days. Triage Nursing Assessment: pt presents with redness and c/o pain to right eye - yellow crusted secretions to right eye. swelling noted to right side of face. pt denies vision difficulty but does c/o headache. Physician History: 37yo F presents to the ER w/ right eye pain and yellow crusting discharge in the mornings that turns to clear throughout the day and right sided facial pain and swelling. This has been going on for the past 7 days. She denies F/C, N/V. Patient reports recent dry mouth and thirst. Timing/Duration: gradual onset Severity: moderate ENT Location: facial (right face) Prearrival Treatment: no prearrival treatment Modifying Factors: Improves With: nothing Associated Symptoms: ear drainage, facial pain/swelling, No ear pain (R), No fever, No chills, No change in hearing, No hearing loss, No nasal congestion/drainage Allergies/Adverse Reactions: No Known Drug Allergies Allergy (Verified 05/15/22 11:29) Home Medications: cloNIDine HCL [Clonidine HCl] 0.1 mg PO TID 10/25/20 [History] Propranolol HCl [Propranolol HCl ER] 160 mg PO HS 03/21/22 [History] Hx Tetanus, Diphtheria Vaccination/Date Given: Yes (Unsure about tetanus) Hx Influenza Vaccination/Date Given: No Hx Pneumococcal Vaccination/Date Given: No Travel Risk - International Travel Have you traveled outside of the country in past 3 weeks: No - Coronavirus Screening Are you exhibiting any of the following symptoms?: No Close contact with a COVID-19 positive Pt in past 14-21 Days: No - Vaccine Status Have you recieved a Covid-19 vaccination: No - Review of Systems Constitutional: No Fever, No Chills Eyes: Discharge, Eye Pain, No Itchy, No Photophobia, No Vision Changes Ears, Nose, & Throat: Other (right facial swelling over the parotid gland, no stones or swelling noted at the ducts in the mouth), No Ear Pain, No Ear Discharge Respiratory: No Symptoms Cardiac: No Symptoms Abdominal/Gastrointestinal: No Symptoms Genitourinary Symptoms: No Symptoms Musculoskeletal: No Symptoms Skin: No Symptoms Neurological: No Symptoms Psychological: No Symptoms Endocrine: No Symptoms Hematologic/Lymphatic: No Symptoms Immunological/Allergic: No Symptoms All Other Systems: Reviewed and Negative - Past Medical History Pertinent Past Medical History: Yes Neurological History: No Pertinent History ENT History: Other Cardiac History: Hypertension Respiratory History: No Pertinent History Endocrine Medical History: No Pertinent History Musculoskeletal History: Arthritis GI Medical History: No Pertinent History History: No Pertinent History Psycho-Social History: Anxiety, Depression Female Reproductive Disorders: No Pertinent History Other Medical History: PCOS, enlarged spleen, ear infections - Past Surgical History Past Surgical History: Yes Neuro Surgical History: No Pertinent History Cardiac: No Pertinent History Respiratory: No Pertinent History Gastrointestinal: No Pertinent History Genitourinary: No Pertinent History Musculoskeletal: No Pertinent History Female Surgical History: Section, Tubal Ligation Other Surgical History: cyst removed off ovary - Social History Smoking Status: Never smoker Exposure to second hand smoke: No Drug Use: none Patient Lives Alone: No Significant Family History: no pertinent family hx - Female History Hx Now: No (Hx tubal ligation) - Nursing Vital Signs Nursing Vital Signs: Initial Vital Signs Temperature 98.4 F 05/15/22 10:43 Pulse Rate 84 05/15/22 10:43 Blood Pressure 140/89 05/15/22 10:43 O2 Sat by Pulse Oximetry 98 05/15/22 10:43 Pain Scale Pain Intensity 4 - Physical Exam General Appearance: mild distress Eye Exam: right eye: PERRL, EOMI, other (dry, yellow crusting) Ear Exam: right ear: auricle normal, canal normal, TM normal Nasal Exam: normal inspection Throat Exam: normal Neck Exam: normal inspection, non-tender, supple, full range of motion Cardiovascular/Respiratory Exam: chest non-tender, normal breath sounds, regular rate/rhythm Abdominal Exam: non-tender, soft Neurologic Exam: alert, oriented x 3, cooperative Skin Exam: other (swelling over right parotid gland) SpO2 Interpretation: normal SpO2: 98 O2 Delivery: Room Air - CT Exams Soft Tissue Neck CT Interpretation: Other (R Parotitis) Maxillofacial Bones CT Interpretation: Other (R Parotitis, b/l exopthalmos) Ordered Tests: Medication Summary Discontinued Medications Generic Name Dose Route Start Last Admin Trade Name Freq PRN Reason Stop Dose Admin Morphine Sulfate 2 mg 05/15/22 12:07 05/15/22 12:30 Morphine Sulfate 2 Mg/Ml Inj IV 05/15/22 12:08 2 mg STAT ONE Administration Morphine Sulfate Confirm 05/15/22 12:29 Morphine Sulfate 2 Mg/Ml Inj Administered 05/15/22 12:30 Dose 2 mg .ROUTE .STK-MED ONE Lab/Rad Data: Laboratory Result Diagrams 05/15/22 12:21 05/15/22 12:21 Laboratory Results 05/15/22 05/15/22 05/15/22 Range/Units 12:28 12: 12:21 WBC 8.2 (4.0-10.5) x10^3/uL RBC 4.10 (4.1-5.4) x10^6/uL Hgb 12.1 (12.0-16.0) g/dL Hct 37.8 (35-47) % MCV 92.2 (78-100) fL MCH 29.5 (26-32) pg MCHC 32.0 (32-36) g/dL RDW 14.0 (11.5-14.0) % Plt Count 252 (150-450) x10^3/uL MPV 9.7 (7.5-11.0) fL Gran % 62.3 (36.0-66.0) % Immature Gran % (Auto) 0.2 (0.00-0.4) % Nucleat RBC Rel Count 0.0 (0.00-0.1) % Eos # (Auto) 0.28 (0-0.5) x10^3/uL Immature Gran # (Auto) 0.02 (0.00-0.03) x10^3u/L Absolute Lymphs (auto) 2.10 (1.0-4.6) x10^3/uL Absolute Monos (auto) 0.66 (0.0-1.3) x10^3/uL Absolute Nucleated RBC 0.00 (0.00-0.01) x10^3u/L Lymphocytes % 25.5 (24.0-44.0) % Monocytes % 8.0 (0.0-12.0) % Eosinophils % 3.4 (0.00-5.0) % Basophils % 0.6 (0.0-0.4) % Absolute Granulocytes 5.11 (1.4-6.9) x10^3/uL Basophils # 0.05 (0-0.4) x10^3/uL Sodium 137 (137-145) mmol/L Potassium 3.9 (3.5-5.1) mmol/L Chloride 102 (98-107) mmol/L Carbon Dioxide 29 (22-30) mmol/L Anion Gap 9.8 (5-15) MEQ/L BUN 11 (7-17) mg/dL Creatinine 0.67 (0.52-1.04) mg/dL Estimated GFR > 60.0 ML/MIN Glucose 104 (74-106) mg/dL Lactic Acid 0.8 (0.4-2.0) Calcium 8.7 (8.4-10.2) mg/dL - Progress Progress: unchanged Progress Note: CT scan showed right sided parotitis and b/l exopthalmos. Patients eye presentation is consistent w/ viral conjuntivitis. Will treat parotitis w/ PO abx and have patient f/u w/ ENT. 05/18/22 13:40 Counseled pt/family regarding: lab results, diagnosis, rad results - Departure Departure Disposition: Home Clinical Impression: Acute parotitis, Viral conjunctivitis of right eye Condition: Stable Critical Care Time: No Referrals: IVON CORDOVA FNP [Primary Care Provider] - Follow up/PCP as directed DORIAN FORREST [NON-STAFF PHY W/O PRIVILEGES] - Follow up/PCP as directed (Within the next week) Prescriptions: Hydrocodone/Acetaminophen [Hydrocodone-Acetamin 5-325 mg] 1 tab PO Q6HPRN PRN 5 Days #20 tablet MDD 4 PRN Reason: Pain Amox Tr/Potass Clav. 875 mg [Augmentin 875-125 Tablet] 875 mg PO BID 14 Days #28 tablet Ibuprofen 800 mg PO TID 7 Days #21 tablet
== END 2022-05-15 14:23 | disposition home or self-care (01) ==
LOC: ED 10:43
DX: K11.21 Acute sialoadenitis (principal); B30.9 Viral conjunctivitis, unspecified; H57.11 Ocular pain, right eye; R22.0 Localized swelling, mass and lump, head; I10 Essential (primary) hypertension; Z79.899 Other long term (current) drug therapy; Z28.310 Unvaccinated for COVID-19; Z79.891 Long term (current) use of opiate analgesic
CPT/HCPCS: 36000; 36415; 70487; 70491; 80048; 83605; 85025; 96374; 99283; J2270

== ENCOUNTER 2022-06-04 00:56 | Emergency (ER) | payer OTHER ==
[2022-06-04] MEDS ORDERED: Zofran 4 MG/2 ML VIAL IV ONE (01:37)
[2022-06-04] MEDS ORDERED: Hydromorphone 1 mg/ml Injection IV ONE (01:37)
[2022-06-04] MEDS ORDERED: Sodium Chloride 0.9% 1000 ML 1,000 ML IV STA (01:37)
--- NOTE | 2022-06-04 01:37 | ERPHSYRPT ---
- History of Present Illness Time Seen by Provider: 06/04/22 01:20 Historian: patient, EMS Exam Limitations: no limitations Patient Subjective Stated Complaint: pt states "I had a cyst removed from left ovary on sunday and I still am hurting so bad. I had c sections and have never hurt this bad." Triage Nursing Assessment: pt presents to ED via [facility] ems, pt alert and oriented x3, pt walked from ambulance cot to bed without assistance, pt had cyst removed from left ovary on sunday by Dr. Anderson and complaining of pain at surgical site, pt informed ems that she felt like she was tachycardiac when she is ambulating, abdominal binder in place upon arrival, no drainage, redness, or odor from incision sites noted, afebrile, pt rating pain 7/10 at surgical sites, last dose of motrin was at 1700, Physician History: This is a morbidly obese 37-year-old white female who underwent a laparoscopic ovarian cystectomy approximately [address] [facility] by Dr. Cole. Patient was given 7 tablets of [place] pain medicine as well as ibuprofen. She is out of her [place] pain medication and only taking ibuprofen. Patient states that she was in up and active. She has 2 sons at home they are very active with autism and ADHD. She states she is up cooking 3 meals a day and dealing with her home animals as well. Patient states that she is just having a lot of pain in her left side of her abdomen. In addition, she feels very short of breath and has some chest pressure but not chest pain when she is up and ambulating. She is concerned that she is not recovering the way she should be covering postoperatively. Her vital signs are stable with a room air oxygen saturation level 100%. Timing/Duration: day(s) (5) Activities at Onset: activity (Worsen symptoms) Abdominal Pain Onset Location: LUQ, LLQ Pain Radiation: no radiation Severity of Pain-Max: moderate Severity of Pain-Current: moderate Modifying Factors: Improves With: nothing, urinating (He feels a lot of pressure with urination) Associated Symptoms: chest pain (She feels pressure with ambulation), shortness of breath (With ambulation) Previous symptoms: no prior history, recent hospitalization, recently treated Allergies/Adverse Reactions: No Known Drug Allergies Allergy (Verified 01/15/23 01:04) Home Medications: cloNIDine HCL [Clonidine HCl] 0.1 mg PO TID 10/25/20 [History] Propranolol HCl [Propranolol HCl ER] 160 mg PO HS 03/21/22 [History] Hx Tetanus, Diphtheria Vaccination/Date Given: No (Unsure about tetanus) Hx Influenza Vaccination/Date Given: No Hx Pneumococcal Vaccination/Date Given: No Immunizations Up to Date: Yes Travel Risk - International Travel Have you traveled outside of the country in past 3 weeks: No - Coronavirus Screening Are you exhibiting any of the following symptoms?: No Close contact with a COVID-19 positive Pt in past 14-21 Days: No - Vaccine Status Have you recieved a Covid-19 vaccination: No - Review of Systems Constitutional: No Symptoms Eyes: No Symptoms Ears, Nose, & Throat: No Symptoms Respiratory: Dyspnea (With ambulation) Cardiac: Chest Pain (Described as pressure with ambulation) Abdominal/Gastrointestinal: Abdominal Pain (Left-sided primarily but bilateral l ower as well) Genitourinary Symptoms: No Symptoms Musculoskeletal: No Symptoms Skin: No Symptoms Neurological: No Symptoms Psychological: No Symptoms Endocrine: No Symptoms Hematologic/Lymphatic: No Symptoms Immunological/Allergic: No Symptoms All Other Systems: Reviewed and Negative - Past Medical History Pertinent Past Medical History: Yes Neurological History: No Pertinent History ENT History: Other Cardiac History: Hypertension Respiratory History: No Pertinent History Endocrine Medical History: No Pertinent History Musculoskeletal History: Arthritis GI Medical History: No Pertinent History History: No Pertinent History Psycho-Social History: Anxiety, Depression Female Reproductive Disorders: No Pertinent History Other Medical History: PCOS, enlarged spleen, ear infections - Past Surgical History Past Surgical History: Yes Neuro Surgical History: No Pertinent History Cardiac: No Pertinent History Respiratory: No Pertinent History Gastrointestinal: No Pertinent History Genitourinary: No Pertinent History Musculoskeletal: No Pertinent History Female Surgical History: Section, Tubal Ligation Other Surgical History: cyst removed off ovary - Social History Smoking Status: Never smoker Exposure to second hand smoke: No Drug Use: none Patient Lives Alone: No Significant Family History: no pertinent family hx - Female History Hx Last Menstrual Period: 05/17/23 Hx Now: No - Nursing Vital Signs Nursing Vital Signs: Initial Vital Signs Temperature 98.3 F 06/04/22 01:04 Pulse Rate 103 H 06/04/22 01:04 Respiratory Rate 18 06/04/22 01:04 Blood Pressure 150/87 06/04/22 01:04 O2 Sat by Pulse Oximetry 100 06/04/22 01:04 Pain Scale Pain Intensity 5 - Physical Exam General Appearance: mild distress, alert, anxiety, obese Eye Exam: PERRL/EOMI, eyes nml inspection Ears, Nose, Throat Exam: normal ENT inspection, moist mucous membranes Neck Exam: normal inspection, non-tender, supple, full range of motion Respiratory Exam: normal breath sounds, lungs clear, airway intact, No chest tenderness, No respiratory distress Cardiovascular Exam: regular rate/rhythm, normal heart sounds, normal peripheral pulses Gastrointestinal/Abdomen Exam: soft, normal bowel sounds, tenderness (Left side of the abdomen and lower abdomen to palpation), guarding (Left side and lower quadrants of the abdomen with palpation), other (Laparoscopic incision sites are without drainage and there is mild, expected ecchymosis around the laparoscopic port sites) Pelvic Exam: not done Rectal Exam: not done Back Exam: normal inspection, normal range of motion, No CVA tenderness, No vertebral tenderness Extremity Exam: normal inspection, normal range of motion, pelvis stable, other (No leg or calf pain), No louann's sign, No swelling, No tenderness Neurologic Exam: alert, oriented x 3, cooperative, 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, normal mood/affect, nml cerebellar function, nml station & gait, sensation nml Skin Exam: normal color, warm, dry Lymphatic Exam: No adenopathy SpO2 Interpretation: normal SpO2: 100 O2 Delivery: Room Air Ordered Tests: Active Orders 24 hr Category Date Time Status IV Insertion STAT Care 06/04/22 01:37 Active ABDOMEN AND PELVIS W CONTRAST [CT] Stat Exams 06/04/22 01:37 Taken CHEST WITH CONTRAST [CT] Stat Exams 06/04/22 01:38 Taken AMYLASE Stat Lab 06/04/22 01:43 Completed CBC W DIFF Stat Lab 06/04/22 01:43 Completed CMP Stat Lab 06/04/22 01:43 Completed LIPASE Stat Lab 06/04/22 01:43 Completed TROPONIN Q4H Lab 06/04/22 01:43 Completed TROPONIN Q4H Lab 06/04/22 05:45 Ordered TROPONIN Q4H Lab 06/04/22 09:45 Ordered UA W/RFX UR CULTURE Stat Lab 06/04/22 01:43 Completed Medication Summary Discontinued Medications Generic Name Dose Route Start Last Admin Trade Name Jayla PRN Reason Stop Dose Admin Hydromorphone HCl 1 mg 06/04/22 01:37 06/04/22 01:49 Hydromorphone 1 Mg/1ml Inj 1 Mg/Ml Syringe IV 06/04/22 01:38 1 mg STAT ONE Administration Hydromorphone HCl Confirm 06/04/22 01:46 Hydromorphone 1 Mg/1ml Inj 1 Mg/Ml Syringe Administered 06/04/22 01:47 Dose 1 mg .ROUTE .STK-MED ONE Sodium Chloride 1,000 mls @ 999 mls/hr 06/04/22 01:37 06/04/22 03:15 Sodium Chloride 0.9% 1000 Ml IV 06/04/22 02:37 Infused .Q1H1M STA Infusion Sodium Chloride Confirm 06/04/22 01:46 Sodium Chloride 0.9% 1000 Ml Administered 06/04/22 01:47 Dose 1,000 mls @ ud .ROUTE .STK-MED ONE Ondansetron HCl 4 mg 06/04/22 01:37 06/04/22 01:49 Ondansetron Hcl 4 Mg/2 Ml Vial IV 06/04/22 01:38 4 mg STAT ONE Administration Ondansetron HCl Confirm 06/04/22 01:45 Ondansetron Hcl 4 Mg/2 Ml Vial Administered 06/04/22 01:46 Dose 4 mg .ROUTE .STK-MED ONE Lab/Rad Data: Laboratory Result Diagrams 06/04/22 01:43 06/04/22 01:43 Laboratory Results 06/04/22 06/04/22 06/04/22 Range/Units 01:43 01:43 01:43 WBC 11.5 H (4.0-10.5) x10^3/uL RBC 3.15 L (4.1-5.4) x10^6/uL Hgb 9.4 L (12.0-16.0) g/dL Hct 29.6 L (35-47) % MCV 94.0 (78-100) fL MCH 29.8 (26-32) pg MCHC 31.8 L (32-36) g/dL RDW 14.3 H (11.5-14.0) % Plt Count 356 (150-450) x10^3/uL MPV 10.1 (7.5-11.0) fL Gran % 73.3 H (36.0-66.0) % Immature Gran % (Auto) 0.3 (0.00-0.4) % Nucleat RBC Rel Count 0.0 (0.00-0.1) % Eos # (Auto) 0.14 (0-0.5) x10^3/uL Immature Gran # (Auto) 0.04 H (0.00-0.03) x10^3u/L Absolute Lymphs (auto) 1.97 (1.0-4.6) x10^3/uL Absolute Monos (auto) 0.90 (0.0-1.3) x10^3/uL Absolute Nucleated RBC 0.00 (0.00-0.01) x10^3u/L Lymphocytes % 17.1 L (24.0-44.0) % Monocytes % 7.8 (0.0-12.0) % Eosinophils % 1.2 (0.00-5.0) % Basophils % 0.3 (0.0-0.4) % Absolute Granulocytes 8.45 H (1.4-6.9) x10^3/uL Basophils # 0.03 (0-0.4) x10^3/uL Sodium 134 L (137-145) mmol/L Potassium 4.0 (3.5-5.1) mmol/L Chloride 102 (98-107) mmol/L Carbon Dioxide 28 (22-30) mmol/L Anion Gap 8.3 (5-15) MEQ/L BUN 13 (7-17) mg/dL Creatinine 0.69 (0.52-1.04) mg/dL Estimated GFR > 60.0 ML/MIN Glucose 124 H (74-106) mg/dL Calcium 8.6 (8.4-10.2) mg/dL Total Bilirubin 0.80 (0.2-1.3) mg/dL AST 42 H (14-36) U/L ALT 29 (0-35) U/L Alkaline Phosphatase 106 (38-126) U/L Troponin I < 0.012 (0.000-0.034) ng/mL Serum Total Protein 7.5 (6.3-8.2) g/dL Albumin 4.0 (3.5-5.0) g/dL Amylase 40 (30-110) U/L Lipase 106 (23-300) U/L Urine Color (Yellow) Urine Appearance (Clear) Urine pH (4.6-8.0) Ur Specific Shirley (1.005-1.030) Urine Protein (Negative) Urine Glucose (UA) (Negative) mg/dL Urine Ketones (Negative) Urine Blood (Negative) Urine Nitrite (Negative) Urine Bilirubin (Negative) Urine Urobilinogen (0.2) mg/dL Ur Leukocyte Esterase (Negative) U Hyaline Cast (Auto) (0-2) /LPF Urine Microscopic RBC (0-5) /HPF Urine Microscopic WBC (0-5) /HPF Ur Epithelial Cells (None Seen) /HPF Urine Bacteria (None Seen) /HPF Urine Culture Reflexed (NO) 06/04/22 Range/Units 01:43 WBC (4.0-10.5) x10^3/uL RBC (4.1-5.4) x10^6/uL Hgb (12.0-16.0) g/dL Hct (35-47) % MCV (78-100) fL MCH (26-32) pg MCHC (32-36) g/dL RDW (11.5-14.0) % Plt Count (150-450) x10^3/uL MPV (7.5-11.0) fL Gran % (36.0-66.0) % Immature Gran % (Auto) (0.00-0.4) % Nucleat RBC Rel Count (0.00-0.1) % Eos # (Auto) (0-0.5) x10^3/uL Immature Gran # (Auto) (0.00-0.03) x10^3u/L Absolute Lymphs (auto) (1.0-4.6) x10^3/uL Absolute Monos (auto) (0.0-1.3) x10^3/uL Absolute Nucleated RBC (0.00-0.01) x10^3u/L Lymphocytes % (24.0-44.0) % Monocytes % (0.0-12.0) % Eosinophils % (0.00-5.0) % Basophils % (0.0-0.4) % Absolute Granulocytes (1.4-6.9) x10^3/uL Basophils # (0-0.4) x10^3/uL Sodium (137-145) mmol/L Potassium (3.5-5.1) mmol/L Chloride (98-107) mmol/L Carbon Dioxide (22-30) mmol/L Anion Gap (5-15) MEQ/L BUN (7-17) mg/dL Creatinine (0.52-1.04) mg/dL Estimated GFR ML/MIN Glucose (74-106) mg/dL Calcium (8.4-10.2) mg/dL Total Bilirubin (0.2-1.3) mg/dL AST (14-36) U/L ALT (0-35) U/L Alkaline Phosphatase (38-126) U/L Troponin I (0.000-0.034) ng/mL Serum Total Protein (6.3-8.2) g/dL Albumin (3.5-5.0) g/dL Amylase (30-110) U/L Lipase (23-300) U/L Urine Color Yellow (Yellow) Urine Appearance Clear (Clear) Urine pH 8.0 (4.6-8.0) Ur Specific Shirley 1.015 (1.005-1.030) Urine Protein Negative (Negative) Urine Glucose (UA) Negative (Negative) mg/dL Urine Ketones Negative (Negative) Urine Blood Negative (Negative) Urine Nitrite Negative (Negative) Urine Bilirubin Negative (Negative) Urine Urobilinogen 1.0 A (0.2) mg/dL Ur Leukocyte Esterase Trace A (Negative) U Hyaline Cast (Auto) NONE SEEN (0-2) /LPF Urine Microscopic RBC 0-2 (0-5) /HPF Urine Microscopic WBC 0-2 (0-5) /HPF Ur Epithelial Cells Few (None Seen) /HPF Urine Bacteria None Seen (None Seen) /HPF Urine Culture Reflexed NO (NO) - Progress Progress: improved Progress Note: 06/04/22 05:02 CT scan abdomen pelvis with contrast shows a left rectus muscle hematoma. CT scan of the chest with contrast shows no pulmonary embolus. Neck mass near isthmus of thyroid gland 06/04/22 05:08 Counseled pt/family regarding: lab results, diagnosis, need for follow-up, rad results - Departure Departure Disposition: Home Clinical Impression: Postoperative abdominal pain, Postprocedural hematoma of abdominal wall, Nonpalpable mass of neck Condition: Stable Critical Care Time: No Referrals: IVON CORDOVA FNP [Primary Care Provider] - Follow up/PCP as directed Additional Instructions: Drink plenty of fluids. Take your medication as prescribed. Follow-up with your surgeon on 06/05/2022 for further evaluation management Prescriptions: Hydrocodone/APAP 5/325 [[place] 5/325 mg] 1 each PO Q8H PRN PRN #6 tablet MDD 3 PRN Reason: Pain
[2022-06-04] MEDS ORDERED: Zofran 4 MG/2 ML VIAL ONE (01:45)
[2022-06-04] MEDS ORDERED: Hydromorphone 1 mg/ml Injection ONE (01:46)
[2022-06-04] MEDS ORDERED: Sodium Chloride 0.9% 1000 ML 1,000 ML ONE (01:46)
[2022-06-04 02:14] LABS: Absolute Neutrophil Ct (ANC) 8.45 x10^3/uL (1.4-6.9); Basophil (Absolute #) 0.03 x10^3/uL (0-0.4); Eosinophil % 1.2 % (0.00-5.0); Eosinophil (Absolute #) 0.14 x10^3/uL (0-0.5); Hematocrit 29.6 % (35-47); Hemoglobin 9.4 g/dL (12.0-16.0); Lymphocyte (Absolute #) 1.97 x10^3/uL (1.0-4.6); Lymphocytes % 17.1 % (24.0-44.0); Mean Corpuscular Hemoglobin 29.8 pg (26-32); Mean Corpuscular Hgb Concent. 31.8 g/dL (32-36); Mean Platelet Volume 10.1 fL (7.5-11.0); Monocytes % 7.8 % (0.0-12.0); Neutrophil % 73.3 % (36.0-66.0); Platelet Count 356 x10^3/uL (150-450); Red Blood Count 3.15 x10^6/uL (4.1-5.4); Red Cell Distribution Width 14.3 % (11.5-14.0); White Blood Count 11.5 x10^3/uL (4.0-10.5)
[2022-06-04 02:21] LABS: ALKALINE PHOSPHATASE 106 U/L (38-126); AMYLASE 40 U/L (30-110); ANION GAP 8.3 MEQ/L (5-15); BLOOD UREA NITROGEN 13 mg/dL (7-17); CHLORIDE 102 mmol/L (98-107); Calcium 8.6 mg/dL (8.4-10.2); Carbon Dioxide 28 mmol/L (22-30); Creatinine 1 0.69 mg/dL (0.52-1.04); EST GLOMERULAR FILTRATION RATE > 60.0 ML/MIN; Glucose 124 mg/dL (74-106); LIPASE 106 U/L (23-300); SGOT/AST 42 U/L (14-36); SGPT/ALT 29 U/L (0-35); SODIUM 134 mmol/L (137-145); Total Protein 7.5 g/dL (6.3-8.2)
[2022-06-04 02:25] LABS: Appearance Clear (Clear); Bacteria None Seen /HPF (None Seen); Bilirubin Negative (Negative); Blood Negative (Negative); Epithelial Cells Few /HPF (None Seen); Glucose, Urine Negative (Negative); Hyaline Casts NONE SEEN /LPF (0-2); Ketones Negative (Negative); Leukocyte Esterase Trace (Negative); Nitrite Negative (Negative); Protein,Urine Dip Negative (Negative); RBC 0-2 /HPF (0-5); Specific Gravity 1.015 (1.005-1.030); WBC 0-2 /HPF (0-5)
[2022-06-04 02:32] LABS: ADD URINE CULTURE? NO (NO)
[2022-06-04] MEDS ORDERED: NORCO 5/325 MG PO ONE (05:09)
[2022-06-04] MEDS ORDERED: NORCO 5/325 MG ONE (05:12)
[2022-06-04 05:31] VITALS: BP 110/67; PULSE 80; O2SAT 97
--- NOTE | 2022-06-04 09:10 | XRAY ---
Indication: Postop chest and abdomen pain. Short of breath. Status post laparoscopic ovarian cystectomy May 29, 2022. Multiple contiguous axial images obtained through the chest using 100 cc Isovue 370 contrast and PE protocol. Comparison: None Poor opacification of the pulmonary arteries limits evaluation for pulmonary embolus. No obvious large central pulmonary embolus. Heart not enlarged. Aorta is normal in course and caliber. Tiny right hilar calcified nodes. No pathologic mediastinal/hilar lymphadenopathy. Base of neck demonstrates a 2.8 cm round midline hypodense soft tissue mass. Lungs demonstrates mild dependent atelectasis. No suspicious pulmonary mass, infiltrate, consolidation, effusion, or pneumothorax. Bony thorax intact. CT abdomen/pelvis reported separately. Impression: 1. Pulmonary embolus evaluation limited by suboptimal contrast opacification. No obvious central pulmonary embolus. 2. Midline base of neck soft tissue mass. Thyroid sonogram may yield further information. 3. Remaining CT chest with contrast exam is negative. Comment: Preliminary interpretation made by [facility]. No critical discrepancy.
--- NOTE | 2022-06-04 09:16 | XRAY ---
Indication: Postop chest and abdomen pain. Short of breath. Status post laparoscopic ovarian cystectomy May 29, 2022. Multiple contiguous axial images obtained through the abdomen and pelvis using 100 cc Isovue 370 contrast. Comparison: March 21, 2022 CT chest reported separately. Noncontrasted stomach and bowel loops appear nonobstructed with normal air-filled appendix. New tiny free fluid and free air both presumed postoperative. Left abdominal wall demonstrates subcutaneous induration and also infraumbilical track of air both related to recent laparoscopic surgery. Left rectus abdominis muscle demonstrates new intramuscular hematoma measuring at least 7.2 x 6.5 x 14.5 cm. Remaining liver, gallbladder, pancreas, spleen, adrenal glands, kidneys, ureters, bladder, uterus, and aorta are unremarkable. No pathologic retroperitoneal lymphadenopathy. Osseous structures intact. Impression: 1. New postoperative changes including tiny abdominal/pelvic free fluid/air and large left rectus abdominis intramuscular hematoma. 2. Remaining CT abdomen/pelvis with contrast exam is negative. Comment: Preliminary interpretation made by [facility]. No critical discrepancy.
== END 2022-06-04 05:32 | disposition home or self-care (01) ==
LOC: ED 00:56
DX: G89.18 Other acute postprocedural pain (principal); L76.32 Postprocedural hematoma of skin and subcutaneous tissue following other procedure; R93.89 Abnormal findings on diagnostic imaging of other specified body structures; R10.12 Left upper quadrant pain; R10.32 Left lower quadrant pain; R07.9 Chest pain, unspecified; R06.02 Shortness of breath; I10 Essential (primary) hypertension; Z79.891 Long term (current) use of opiate analgesic; Z79.899 Other long term (current) drug therapy; Z28.310 Unvaccinated for COVID-19
CPT/HCPCS: 36000; 36415; 71260; 74177; 80053; 81001; 82150; 83690; 84484; 85025; 96360; 96374; 96375; 99284; J1170; J2405; A9270-GY

== ENCOUNTER 2022-08-25 22:56 | Emergency (ER) | payer OTHER ==
--- NOTE | 2022-08-25 23:22 | ERPHSYRPT ---
- History of Present Illness Time Seen by Provider: 08/25/22 23:22 Historian: patient Exam Limitations: no limitations Patient Subjective Stated Complaint: pt states I have this pain in my stomach and back. It feels like I have I have to pee all the time. Triage Nursing Assessment: pt came into the er via ambulance; pt transferred self to restroom; pt is axo x4; c/o left flank pain; no respiratory distress present; skin PDW; denies N/V/D today; vitals wnl Physician History: Patient BIBA for left sided flank pain, onset 1 week ago, but worsened over the past 2 days. She reports nausea w/out vomiting, urinary frequency, urgency w/out dysuria or hematuria. Patient also reports suprapubic abd pain as well. No fevers, chills, cp, sob or swelling. Tubes tied, no concern for . No vaginal d/c. Timing/Duration: week(s) (1) Activities at Onset: other (laundry) Quality: sharpness, stabbing Abdominal Pain Onset Location: suprapubic, flank (left) Pain Radiation: no radiation Severity of Pain-Max: moderate Severity of Pain-Current: mild Modifying Factors: Improves With: rest. Worsens With: movement, urinating Associated Symptoms: nausea, No chest pain, No diaphoresis, No fever/chills, No shortness of breath, No vomiting Previous symptoms: no prior history Allergies/Adverse Reactions: No Known Drug Allergies Allergy (Verified 06/04/22 01:04) Home Medications: cloNIDine HCL [Clonidine HCl] 0.1 mg PO TID 10/25/20 [History] Propranolol HCl [Propranolol HCl ER] 160 mg PO HS 03/21/22 [History] Hx Tetanus, Diphtheria Vaccination/Date Given: No (Unsure about tetanus) Hx Influenza Vaccination/Date Given: No Hx Pneumococcal Vaccination/Date Given: No Travel Risk - International Travel Have you traveled outside of the country in past 3 weeks: No - Coronavirus Screening Are you exhibiting any of the following symptoms?: No Close contact with a COVID-19 positive Pt in past 14-21 Days: No - Vaccine Status Have you recieved a Covid-19 vaccination: No - Review of Systems Constitutional: No Symptoms Eyes: No Symptoms Ears, Nose, & Throat: No Symptoms Respiratory: No Symptoms Cardiac: No Symptoms Abdominal/Gastrointestinal: Abdominal Pain (suprapubic), Nausea, Appetite Changes, No Vomiting, No Diarrhea Genitourinary Symptoms: Frequency, Urgency, Flank Pain (left), No Dysuria, No Hematuria Musculoskeletal: No Symptoms Skin: No Symptoms Neurological: No Symptoms Psychological: No Symptoms Endocrine: No Symptoms Hematologic/Lymphatic: No Symptoms Immunological/Allergic: No Symptoms All Other Systems: Reviewed and Negative - Past Medical History Pertinent Past Medical History: Yes Neurological History: No Pertinent History ENT History: Other Cardiac History: Hypertension Respiratory History: No Pertinent History Endocrine Medical History: No Pertinent History Musculoskeletal History: Arthritis GI Medical History: No Pertinent History History: No Pertinent History Psycho-Social History: Anxiety, Depression Female Reproductive Disorders: No Pertinent History Other Medical History: PCOS, enlarged spleen, ear infections - Past Surgical History Past Surgical History: Yes Neuro Surgical History: No Pertinent History Cardiac: No Pertinent History Respiratory: No Pertinent History Gastrointestinal: No Pertinent History Genitourinary: No Pertinent History Musculoskeletal: No Pertinent History Female Surgical History: Section, Tubal Ligation Other Surgical History: cyst removed off ovary - Social History Smoking Status: Never smoker Exposure to second hand smoke: No Drug Use: none Patient Lives Alone: No Significant Family History: no pertinent family hx - Female History Hx Now: No - Nursing Vital Signs Nursing Vital Signs: Initial Vital Signs Temperature 97.1 F 08/25/22 22:57 Pulse Rate 64 08/25/22 22:57 Respiratory Rate 18 08/25/22 22:57 Blood Pressure 136/71 08/25/22 22:57 O2 Sat by Pulse Oximetry 99 08/25/22 22:57 Pain Scale Pain Intensity 4 - Physical Exam General Appearance: no apparent distress Eye Exam: eyes nml inspection Ears, Nose, Throat Exam: normal ENT inspection Neck Exam: normal inspection Respiratory Exam: normal breath sounds, airway intact, No respiratory distress Cardiovascular Exam: regular rate/rhythm, capillary refill <2 sec Gastrointestinal/Abdomen Exam: soft, normal bowel sounds, tenderness (suprapubic), No distention, No mass, No guarding, No rebound Back Exam: normal inspection, CVA tenderness (left) Extremity Exam: normal inspection, No swelling Neurologic Exam: alert, oriented x 3, cooperative Skin Exam: normal color, warm, dry SpO2 Interpretation: normal SpO2: 99 O2 Delivery: Room Air - Course Nursing assessment & vital signs reviewed: Yes - CT Exams Abdomen/Pelvis CT Interpretation: Negative, Tele-radiologist Report Ordered Tests: Active Orders 24 hr Category Date Time Status IV Insertion STAT Care 08/25/22 23:32 Active ABDOMEN AND PELVIS W/0 CONTRAS [CT] Stat Exams 08/25/22 23:33 Completed CBC W DIFF Stat Lab 08/25/22 23:45 Completed CMP Stat Lab 08/25/22 23:45 Completed CULTURE,URINE Stat Lab 08/25/22 23:04 Received LIPASE Stat Lab 08/25/22 23:45 Completed Lactic Acid Stat Lab 08/25/22 23:47 Completed UA W/RFX UR CULTURE Stat Lab 08/25/22 23:04 Completed Medication Summary Discontinued Medications Generic Name Dose Route Start Last Admin Trade Name Jayla PRN Reason Stop Dose Admin Droperidol 0.625 mg 08/26/22 00:23 08/26/22 00:27 Droperidol 5 Mg/2 Ml Vial IV 08/26/22 00:24 0.625 mg STAT ONE Administration Droperidol Confirm 08/26/22 00:26 Droperidol 5 Mg/2 Ml Vial Administered 08/26/22 00:27 Dose 5 mg .ROUTE .[employer] ONE Sodium Chloride 1,000 mls @ 999 mls/hr 08/25/22 23:32 08/26/22 01:08 Sodium Chloride 0.9% 1000 Ml IV 08/26/22 00:32 Infused .Q1H1M STA Infusion Sodium Chloride Confirm 08/25/22 23:48 Sodium Chloride 0.9% 1000 Ml Administered 08/25/22 23:49 Dose 1,000 mls @ ud .ROUTE .[employer] ONE Ketorolac Tromethamine 30 mg 08/25/22 23:32 08/25/22 23:49 Ketorolac Tromethamine 30 Mg/Ml Inj IV 08/25/22 23:33 30 mg STAT ONE Administration Ketorolac Tromethamine Confirm 08/25/22 23:48 Ketorolac Tromethamine 30 Mg/Ml Inj Administered 08/25/22 23:49 Dose 30 mg .ROUTE .[employer]K-[employer] ONE Lab/Rad Data: Laboratory Result Diagrams 08/25/22 23:45 08/25/22 23:45 Laboratory Results 08/25/22 08/25/22 08/25/22 Range/Units 23:47 23:45 23:45 WBC 7.5 (4.0-10.5) x10^3/uL RBC 4.27 (4.1-5.4) x10^6/uL Hgb 12.2 (12.0-16.0) g/dL Hct 38.7 (35-47) % MCV 90.6 (78-100) fL MCH 28.6 (26-32) pg MCHC 31.5 L (32-36) g/dL RDW 14.1 H (11.5-14.0) % Plt Count 269 (150-450) x10^3/uL MPV 10.7 (7.5-11.0) fL Gran % 44.2 (36.0-66.0) % Immature Gran % (Auto) 0.3 (0.00-0.4) % Nucleat RBC Rel Count 0.0 (0.00-0.1) % Eos # (Auto) 0.16 (0-0.5) x10^3/uL Immature Gran # (Auto) 0.02 (0.00-0.03) x10^3u/L Absolute Lymphs (auto) 3.38 (1.0-4.6) x10^3/uL Absolute Monos (auto) 0.59 (0.0-1.3) x10^3/uL Absolute Nucleated RBC 0.00 (0.00-0.01) x10^3u/L Lymphocytes % 45.2 H (24.0-44.0) % Monocytes % 7.9 (0.0-12.0) % Eosinophils % 2.1 (0.00-5.0) % Basophils % 0.3 (0.0-0.4) % Absolute Granulocytes 3.30 (1.4-6.9) x10^3/uL Basophils # 0.02 (0-0.4) x10^3/uL Sodium 142 (137-145) mmol/L Potassium 4.1 (3.5-5.1) mmol/L Chloride 102 (98-107) mmol/L Carbon Dioxide 31 H (22-30) mmol/L Anion Gap 13.8 (5-15) MEQ/L BUN 14 (7-17) mg/dL Creatinine 0.85 (0.52-1.04) mg/dL Estimated GFR > 60.0 ML/MIN Glucose 97 (74-106) mg/dL Lactic Acid 0.3 L (0.4-2.0) Calcium 8.9 (8.4-10.2) mg/dL Total Bilirubin 0.40 (0.2-1.3) mg/dL AST 34 (14-36) U/L ALT 31 (0-35) U/L Alkaline Phosphatase 80 (38-126) U/L Serum Total Protein 7.7 (6.3-8.2) g/dL Albumin 4.2 (3.5-5.0) g/dL Lipase 81 (23-300) U/L Urine Color (Yellow) Urine Appearance (Clear) Urine pH (4.6-8.0) Ur Specific [place] (1.005-1.030) Urine Protein (Negative) Urine Glucose (UA) (Negative) mg/dL Urine Ketones (Negative) Urine Blood (Negative) Urine Nitrite (Negative) Urine Bilirubin (Negative) Urine Urobilinogen (0.2) mg/dL Ur Leukocyte Esterase (Negative) U Hyaline Cast (Auto) (0-2) /LPF Urine Microscopic RBC (0-5) /HPF Urine Microscopic WBC (0-5) /HPF Ur Epithelial Cells (None Seen) /HPF Urine Bacteria (None Seen) /HPF Urine Culture Reflexed (NO) 08/25/22 Range/Units 23:04 WBC (4.0-10.5) x10^3/uL RBC (4.1-5.4) x10^6/uL Hgb (12.0-16.0) g/dL Hct (35-47) % MCV (78-100) fL MCH (26-32) pg MCHC (32-36) g/dL RDW (11.5-14.0) % Plt Count (150-450) x10^3/uL MPV (7.5-11.0) fL Gran % (36.0-66.0) % Immature Gran % (Auto) (0.00-0.4) % Nucleat RBC Rel Count (0.00-0.1) % Eos # (Auto) (0-0.5) x10^3/uL Immature Gran # (Auto) (0.00-0.03) x10^3u/L Absolute Lymphs (auto) (1.0-4.6) x10^3/uL Absolute Monos (auto) (0.0-1.3) x10^3/uL Absolute Nucleated RBC (0.00-0.01) x10^3u/L Lymphocytes % (24.0-44.0) % Monocytes % (0.0-12.0) % Eosinophils % (0.00-5.0) % Basophils % (0.0-0.4) % Absolute Granulocytes (1.4-6.9) x10^3/uL Basophils # (0-0.4) x10^3/uL Sodium (137-145) mmol/L Potassium (3.5-5.1) mmol/L Chloride (98-107) mmol/L Carbon Dioxide (22-30) mmol/L Anion Gap (5-15) MEQ/L BUN (7-17) mg/dL Creatinine (0.52-1.04) mg/dL Estimated GFR ML/MIN Glucose (74-106) mg/dL Lactic Acid (0.4-2.0) Calcium (8.4-10.2) mg/dL Total Bilirubin (0.2-1.3) mg/dL AST (14-36) U/L ALT (0-35) U/L Alkaline Phosphatase (38-126) U/L Serum Total Protein (6.3-8.2) g/dL Albumin (3.5-5.0) g/dL Lipase (23-300) U/L Urine Color Dark Yellow A (Yellow) Urine Appearance Clear (Clear) Urine pH 5.5 (4.6-8.0) Ur Specific [place] >=1.030 A (1.005-1.030) Urine Protein 30 (Negative) Urine Glucose (UA) Negative (Negative) mg/dL Urine Ketones Trace A (Negative) Urine Blood Negative (Negative) Urine Nitrite Negative (Negative) Urine Bilirubin Negative (Negative) Urine Urobilinogen 1.0 A (0.2) mg/dL Ur Leukocyte Esterase Negative (Negative) U Hyaline Cast (Auto) 3-5 A (0-2) /LPF Urine Microscopic RBC 11-20 A (0-5) /HPF Urine Microscopic WBC 11-20 A (0-5) /HPF Ur Epithelial Cells Moderate A (None Seen) /HPF Urine Bacteria Few A (None Seen) /HPF Urine Culture Reflexed YES (NO) - Progress Progress: unchanged Progress Note: 08/26/22 00:37 Labs cbc wnl, cmp unremarkable, UA shows ketones, blood and wbc, but no LE. Patient still having pain after initial meds, will give Droperidol for pain and nausea. CT abd/pelvis pending read. 08/26/22 01:57 CT showed signs consistent w/ possible passing of kidney stone. Will d/c home w/ Zofran. Counseled pt/family regarding: lab results, diagnosis, rad results - Departure Departure Disposition: Home Clinical Impression: Nephrolithiasis, Hematuria Condition: Good Critical Care Time: No Referrals: IVON CORDOVA FNP [Primary Care Provider] - Follow up/PCP as directed Instructions: Kidney Stones (DC) Prescriptions: Ondansetron [Ondansetron Odt ] 4 mg PO Q6H PRN #15 tablet PRN Reason: Nausea
[2022-08-25] MEDS ORDERED: Sodium Chloride 0.9% 1000 ML 1,000 ML IV STA (23:32)
[2022-08-25] MEDS ORDERED: TORAdol 30 mg Injection IV ONE (23:32)
[2022-08-25 23:35] LABS: Appearance Clear (Clear); Bacteria Few /HPF (None Seen); Bilirubin Negative (Negative); Blood Negative (Negative); Epithelial Cells Moderate /HPF (None Seen); Glucose, Urine Negative (Negative); Ketones Trace (Negative); Leukocyte Esterase Negative (Negative); Nitrite Negative (Negative); Ph 5.5 (4.6-8.0); Protein,Urine Dip 30 (Negative); Specific Gravity >=1.030 (1.005-1.030)
[2022-08-25] MEDS ORDERED: Sodium Chloride 0.9% 1000 ML 1,000 ML ONE (23:48)
[2022-08-25] MEDS ORDERED: TORAdol 30 mg Injection ONE (23:48)
[2022-08-25 23:57] LABS: ADD URINE CULTURE? YES (NO)
[2022-08-25 23:58] LABS: BASOPHIL % 0.3 % (0.0-0.4); Basophil (Absolute #) 0.02 x10^3/uL (0-0.4); Eosinophil % 2.1 % (0.00-5.0); Eosinophil (Absolute #) 0.16 x10^3/uL (0-0.5); Hematocrit 38.7 % (35-47); Hemoglobin 12.2 g/dL (12.0-16.0); IMMATURE GRAN # 0.02 x10^3u/L (0.00-0.03); IMMATURE GRAN % 0.3 % (0.00-0.4); Lymphocyte (Absolute #) 3.38 x10^3/uL (1.0-4.6); Lymphocytes % 45.2 % (24.0-44.0); Mean Cell Volume 90.6 fL (78-100); Mean Corpuscular Hemoglobin 28.6 pg (26-32); Mean Corpuscular Hgb Concent. 31.5 g/dL (32-36); Mean Platelet Volume 10.7 fL (7.5-11.0); Monocyte (Absolute #) 0.59 x10^3/uL (0.0-1.3); Monocytes % 7.9 % (0.0-12.0); Neutrophil % 44.2 % (36.0-66.0); Platelet Count 269 x10^3/uL (150-450); Red Blood Count 4.27 x10^6/uL (4.1-5.4); Red Cell Distribution Width 14.1 % (11.5-14.0); White Blood Count 7.5 x10^3/uL (4.0-10.5)
[2022-08-26 00:11] LABS: ALBUMIN 4.2 g/dL (3.5-5.0); ALKALINE PHOSPHATASE 80 U/L (38-126); ANION GAP 13.8 MEQ/L (5-15); BLOOD UREA NITROGEN 14 mg/dL (7-17); CHLORIDE 102 mmol/L (98-107); Calcium 8.9 mg/dL (8.4-10.2); Carbon Dioxide 31 mmol/L (22-30); Creatinine 1 0.85 mg/dL (0.52-1.04); EST GLOMERULAR FILTRATION RATE > 60.0 ML/MIN; Glucose 97 mg/dL (74-106); LIPASE 81 U/L (23-300); Potassium 4.1 mmol/L (3.5-5.1); SGOT/AST 34 U/L (14-36); SGPT/ALT 31 U/L (0-35); SODIUM 142 mmol/L (137-145); Total Protein 7.7 g/dL (6.3-8.2)
--- NOTE | 2022-08-26 01:46 | XRAY ---
CLINICAL HISTORY:left flank pain COMPARISON:06-04-2022; TECHNIQUES:Multiple axial sections of the abdomen and pelvis were acquired without intravenous contrast administration. Reformatted images were obtained. CTDI: 24.9 mGy, DLP: 1337 mGy*cm; FINDINGS: The visualized lung bases are clear. Both kidneys are normal in size, location, and axis. No calculus or hydronephrosis in either kidney. The suggestion of low-density area seen at mid pole of the right kidney possible cyst/prominent column of Dominic. Mildly enlarged liver measuring 17 cm in its maximum craniocaudal dimension on coronal images. Mildly enlarged spleen measuring 13 in its maximum dimension. Tiny focal parenchymal calcification noted. The unenhanced gallbladder, pancreas, and both adrenals appear unremarkable. Urinary bladder is almost empty. No acute bowel obstruction or ileus. Mild scattered colonic stool volume. The appendix is normal. Uterus and both ovaries appear within normal limits. No free fluid or free intraperitoneal air is noted. A soft tissue density nodule measuring 1.9 cm is seen at the inferior abdominal wall. Multilevel thoracolumbar spondylosis. Anterior angulation of the tip of the coccyx is noted. IMPRESSION: 1. Normal-sized nonhydronephrotic both kidneys. No renal calculi. 2. Suggestion of low-density area in the right kidney, presumed cyst/prominent column of Dominic. 3. Mild hepatosplenomegaly. 4. The rest of the CT scan abdomen/pelvis is within normal limits. 5. As compared to prior CT study, there is interval resolution of postoperative changes and hematoma. The rest of the findings are stable. Electronically Signed by: Marika Medina MD. (08/26/2022 00:40:07 [employer] HEL[employer])
[2022-08-26 02:11] VITALS: BP 134/89; PULSE 58; O2SAT 98
== END 2022-08-26 02:11 | disposition home or self-care (01) ==
LOC: ED 22:56
DX: N20.0 Calculus of kidney (principal); R31.9 Hematuria, unspecified; R10.9 Unspecified abdominal pain; R11.0 Nausea; R35.0 Frequency of micturition; R10.2 Pelvic and perineal pain; I10 Essential (primary) hypertension; Z79.899 Other long term (current) drug therapy; Z28.310 Unvaccinated for COVID-19
CPT/HCPCS: 36000; 36415; 74176; 80053; 81001; 83605; 83690; 85025; 87086; 96360; 96374; 96375; 99284; J1885

== ENCOUNTER 2022-09-21 04:48 | Emergency (ER) | payer OTHER ==
--- NOTE | 2022-09-21 05:22 | ERPHSYRPT ---
- History of Present Illness Exam Limitations: no limitations Patient Subjective Stated Complaint: pt states she woke up with rt upper quad abd pain approx 2 hours ago. rates as 8/10 and describes as sharp. Triage Nursing Assessment: pt alert and oriented, answers questions approp. pt arrive per ambulance and ambulates from ems cot to stretcher with steady gait noted. respirations nonlabored. skin warm and dry. abd soft and nontender to light palpation. bowel sounds present x4 quads. Physician History: Is a 37-year-old female with no significant past medical history presents with right upper quadrant abdominal pain. Patient reports she woke up today a couple hours ago with severe sharp right upper quadrant and epigastric pain. Pain does not radiate. Patient reports she had her last meal at 9 PM pain started around 3 AM. Patient denies having any nausea or vomiting. Patient denies any chest pain, shortness of breath or palpitations. Timing/Duration: today Allergies/Adverse Reactions: No Known Drug Allergies Allergy (Verified 09/21/22 05:08) Home Medications: cloNIDine HCL [Clonidine HCl] 0.1 mg PO TID 10/25/20 [History] Propranolol HCl [Propranolol HCl ER] 160 mg PO HS 03/21/22 [History] Hx Tetanus, Diphtheria Vaccination/Date Given: No (Unsure) Hx Influenza Vaccination/Date Given: No Hx Pneumococcal Vaccination/Date Given: No Travel Risk - International Travel Have you traveled outside of the country in past 3 weeks: No - Coronavirus Screening Are you exhibiting any of the following symptoms?: No Close contact with a COVID-19 positive Pt in past 14-21 Days: No - Vaccine Status Have you recieved a Covid-19 vaccination: No - Review of Systems Constitutional: No Fever, No Chills Eyes: No Symptoms Ears, Nose, & Throat: No Symptoms Respiratory: No Cough, No Dyspnea Cardiac: No Chest Pain, No Edema, No Syncope Abdominal/Gastrointestinal: Abdominal Pain (Right upper quadrant and epigastric abdominal pain), No Nausea, No Vomiting, No Diarrhea Genitourinary Symptoms: No Dysuria Musculoskeletal: No Back Pain, No Neck Pain Skin: No Rash Neurological: No Dizziness, No Focal Weakness, No Sensory Changes Psychological: No Symptoms Endocrine: No Symptoms All Other Systems: Reviewed and Negative - Past Medical History Pertinent Past Medical History: Yes Neurological History: No Pertinent History ENT History: Other Cardiac History: Hypertension Respiratory History: No Pertinent History Endocrine Medical History: No Pertinent History Musculoskeletal History: Arthritis GI Medical History: No Pertinent History History: No Pertinent History Psycho-Social History: Anxiety, Depression Female Reproductive Disorders: No Pertinent History Other Medical History: PCOS, enlarged spleen, ear infections - Past Surgical History Past Surgical History: Yes Neuro Surgical History: No Pertinent History Cardiac: No Pertinent History Respiratory: No Pertinent History Gastrointestinal: No Pertinent History Genitourinary: No Pertinent History Musculoskeletal: No Pertinent History Female Surgical History: Section, Tubal Ligation Other Surgical History: cyst removed off ovary - Social History Smoking Status: Never smoker Exposure to second hand smoke: No Drug Use: none Patient Lives Alone: Yes Significant Family History: no pertinent family hx - Female History Hx Last Menstrual Period: this week Hx Now: No - Nursing Vital Signs Nursing Vital Signs: Initial Vital Signs Temperature 97.4 F 09/21/22 04:50 Pulse Rate 67 09/21/22 04:50 Respiratory Rate 16 09/21/22 04:50 O2 Sat by Pulse Oximetry 97 09/21/22 04:50 Pain Scale Pain Intensity 10 - Physical Exam General Appearance: no apparent distress, alert Eye Exam: PERRL/EOMI, eyes nml inspection Ears, Nose, Throat Exam: normal ENT inspection, moist mucous membranes Neck Exam: normal inspection Respiratory Exam: normal breath sounds, lungs clear, No respiratory distress Cardiovascular Exam: regular rate/rhythm, normal heart sounds, normal peripheral pulses Gastrointestinal/Abdomen Exam: soft, normal bowel sounds, tenderness (Right upper quadrant, positive [place] sign on exam), No distention, No mass, No organomegaly Back Exam: normal inspection, No CVA tenderness, No vertebral tenderness Extremity Exam: normal inspection, normal range of motion, pelvis stable Neurologic Exam: alert, oriented x 3, cooperative, normal mood/affect, nml cerebellar function, nml station & gait, sensation nml, No motor deficits Skin Exam: normal color, warm, dry, No rash Lymphatic Exam: No adenopathy SpO2: 97 - Course EKG Interpreted by Me: RATE, NORMAL AXIS, NORMAL INTERVALS, NORMAL QRS Rhythm Strip: Normal Sinus Rhythm Ordered Tests: Active Orders 24 hr Category Date Time Status EKG-ER Only STAT Care 09/21/22 05:14 Active ABDOMEN AND PELVIS W/0 CONTRAS [CT] Stat Exams 09/21/22 05:24 Completed CBC W DIFF Stat Lab 09/21/22 05:34 Completed CMP Stat Lab 09/21/22 05:34 Completed CULTURE,URINE Stat Lab 09/21/22 05:16 Received TROPONIN Q4H Lab 09/21/22 05:34 Completed TROPONIN Q4H Lab 09/21/22 09:15 Ordered TROPONIN Q4H Lab 09/21/22 13:15 Ordered UA W/RFX UR CULTURE Stat Lab 09/21/22 05:16 Completed Medication Summary Discontinued Medications Generic Name Dose Route Start Last Admin Trade Name Jayla PRN Reason Stop Dose Admin Morphine Sulfate 2 mg 09/21/22 05:25 09/21/22 06:08 Morphine Sulfate 2 Mg/Ml Inj IV 09/21/22 05:26 2 mg STAT ONE Administration Morphine Sulfate Confirm 09/21/22 06:08 Morphine Sulfate 2 Mg/Ml Inj Administered 09/21/22 06:09 Dose 2 mg .ROUTE .[employer] ONE Lab/Rad Data: Laboratory Result Diagrams 09/21/22 05:34 09/21/22 05:34 Laboratory Results 09/21/22 09/21/22 09/21/22 Range/Units 05:34 05:34 05:34 WBC 6.3 (4.0-10.5) x10^3/uL RBC 4.04 L (4.1-5.4) x10^6/uL Hgb 11.6 L (12.0-16.0) g/dL Hct 36.1 (35-47) % MCV 89.4 (78-100) fL MCH 28.7 (26-32) pg MCHC 32.1 (32-36) g/dL RDW 14.5 H (11.5-14.0) % Plt Count 255 (150-450) x10^3/uL MPV 10.4 (7.5-11.0) fL Gran % 60.1 (36.0-66.0) % Immature Gran % (Auto) 0.2 (0.00-0.4) % Nucleat RBC Rel Count 0.0 (0.00-0.1) % Eos # (Auto) 0.10 (0-0.5) x10^3/uL Immature Gran # (Auto) 0.01 (0.00-0.03) x10^3u/L Absolute Lymphs (auto) 1.90 (1.0-4.6) x10^3/uL Absolute Monos (auto) 0.48 (0.0-1.3) x10^3/uL Absolute Nucleated RBC 0.00 (0.00-0.01) x10^3u/L Lymphocytes % 30.2 (24.0-44.0) % Monocytes % 7.6 (0.0-12.0) % Eosinophils % 1.6 (0.00-5.0) % Basophils % 0.3 (0.0-0.4) % Absolute Granulocytes 3.78 (1.4-6.9) x10^3/uL Basophils # 0.02 (0-0.4) x10^3/uL Sodium 141 (137-145) mmol/L Potassium 4.1 (3.5-5.1) mmol/L Chloride 102 (98-107) mmol/L Carbon Dioxide 30 (22-30) mmol/L Anion Gap 12.7 (5-15) MEQ/L BUN 13 (7-17) mg/dL Creatinine 0.90 (0.52-1.04) mg/dL Estimated GFR > 60.0 ML/MIN Glucose 107 H (74-106) mg/dL Calcium 8.5 (8.4-10.2) mg/dL Total Bilirubin 0.40 (0.2-1.3) mg/dL AST 105 H (14-36) U/L ALT 50 H (0-35) U/L Alkaline Phosphatase 70 (38-126) U/L Troponin I 0.019 (0.000-0.034) ng/mL Serum Total Protein 6.4 (6.3-8.2) g/dL Albumin 3.5 (3.5-5.0) g/dL Urine Color (Yellow) Urine Appearance (Clear) Urine pH (4.6-8.0) Ur Specific [place] (1.005-1.030) Urine Protein (Negative) Urine Glucose (UA) (Negative) mg/dL Urine Ketones (Negative) Urine Blood (Negative) Urine Nitrite (Negative) Urine Bilirubin (Negative) Urine Urobilinogen (0.2) mg/dL Ur Leukocyte Esterase (Negative) U Hyaline Cast (Auto) (0-2) /LPF Urine Microscopic RBC (0-5) /HPF Urine Microscopic WBC (0-5) /HPF Ur Epithelial Cells (None Seen) /HPF Urine Bacteria (None Seen) /HPF Urine Culture Reflexed (NO) 09/21/22 Range/Units 05:16 WBC (4.0-10.5) x10^3/uL RBC (4.1-5.4) x10^6/uL Hgb (12.0-16.0) g/dL Hct (35-47) % MCV (78-100) fL MCH (26-32) pg MCHC (32-36) g/dL RDW (11.5-14.0) % Plt Count (150-450) x10^3/uL MPV (7.5-11.0) fL Gran % (36.0-66.0) % Immature Gran % (Auto) (0.00-0.4) % Nucleat RBC Rel Count (0.00-0.1) % Eos # (Auto) (0-0.5) x10^3/uL Immature Gran # (Auto) (0.00-0.03) x10^3u/L Absolute Lymphs (auto) (1.0-4.6) x10^3/uL Absolute Monos (auto) (0.0-1.3) x10^3/uL Absolute Nucleated RBC (0.00-0.01) x10^3u/L Lymphocytes % (24.0-44.0) % Monocytes % (0.0-12.0) % Eosinophils % (0.00-5.0) % Basophils % (0.0-0.4) % Absolute Granulocytes (1.4-6.9) x10^3/uL Basophils # (0-0.4) x10^3/uL Sodium (137-145) mmol/L Potassium (3.5-5.1) mmol/L Chloride (98-107) mmol/L Carbon Dioxide (22-30) mmol/L Anion Gap (5-15) MEQ/L BUN (7-17) mg/dL Creatinine (0.52-1.04) mg/dL Estimated GFR ML/MIN Glucose (74-106) mg/dL Calcium (8.4-10.2) mg/dL Total Bilirubin (0.2-1.3) mg/dL AST (14-36) U/L ALT (0-35) U/L Alkaline Phosphatase (38-126) U/L Troponin I (0.000-0.034) ng/mL Serum Total Protein (6.3-8.2) g/dL Albumin (3.5-5.0) g/dL Urine Color Yellow (Yellow) Urine Appearance Cloudy A (Clear) Urine pH 7.0 (4.6-8.0) Ur Specific [place] 1.025 (1.005-1.030) Urine Protein Negative (Negative) Urine Glucose (UA) Negative (Negative) mg/dL Urine Ketones Negative (Negative) Urine Blood Small A (Negative) Urine Nitrite Negative (Negative) Urine Bilirubin Negative (Negative) Urine Urobilinogen 1.0 A (0.2) mg/dL Ur Leukocyte Esterase Trace A (Negative) U Hyaline Cast (Auto) NONE SEEN (0-2) /LPF Urine Microscopic RBC 0-2 (0-5) /HPF Urine Microscopic WBC 3-5 (0-5) /HPF Ur Epithelial Cells Rare (None Seen) /HPF Urine Bacteria None Seen (None Seen) /HPF Urine Culture Reflexed YES (NO) - Progress Progress: improved Progress Note: 09/21/22 07:12 Patient reports improved of her pain with pain medication. CT abdomen pelvis not significant or anything acute. laboratory show abnormal LFTs but are otherwise significantly normal. The patient regarding discharge and to follow- up with PCP patient in agreements to follow-up with PCP. Will see patient in: office (Follow-up with PCP) - Departure Departure Disposition: Home Clinical Impression: Right upper quadrant abdominal pain, Abdominal pain Condition: Stable Critical Care Time: No Referrals: IVON CORDOVA FNP [Primary Care Provider] - Follow up/PCP as directed
[2022-09-21] MEDS ORDERED: MORPHINE SULFATE 2 MG INJ IV ONE (05:25)
[2022-09-21 05:37] LABS: Absolute Neutrophil Ct (ANC) 3.78 x10^3/uL (1.4-6.9); BASOPHIL % 0.3 % (0.0-0.4); Basophil (Absolute #) 0.02 x10^3/uL (0-0.4); Eosinophil % 1.6 % (0.00-5.0); Hematocrit 36.1 % (35-47); Hemoglobin 11.6 g/dL (12.0-16.0); IMMATURE GRAN # 0.01 x10^3u/L (0.00-0.03); IMMATURE GRAN % 0.2 % (0.00-0.4); Lymphocytes % 30.2 % (24.0-44.0); Mean Cell Volume 89.4 fL (78-100); Mean Corpuscular Hemoglobin 28.7 pg (26-32); Mean Corpuscular Hgb Concent. 32.1 g/dL (32-36); Mean Platelet Volume 10.4 fL (7.5-11.0); Monocyte (Absolute #) 0.48 x10^3/uL (0.0-1.3); Monocytes % 7.6 % (0.0-12.0); Neutrophil % 60.1 % (36.0-66.0); Platelet Count 255 x10^3/uL (150-450); Red Blood Count 4.04 x10^6/uL (4.1-5.4); Red Cell Distribution Width 14.5 % (11.5-14.0); White Blood Count 6.3 x10^3/uL (4.0-10.5)
[2022-09-21 05:44] LABS: Appearance Cloudy (Clear); Bacteria None Seen /HPF (None Seen); Bilirubin Negative (Negative); Blood Small (Negative); Epithelial Cells Rare /HPF (None Seen); Glucose, Urine Negative (Negative); Hyaline Casts NONE SEEN /LPF (0-2); Ketones Negative (Negative); Leukocyte Esterase Trace (Negative); Nitrite Negative (Negative); Protein,Urine Dip Negative (Negative); RBC 0-2 /HPF (0-5); Specific Gravity 1.025 (1.005-1.030)
[2022-09-21 05:45] LABS: ADD URINE CULTURE? YES (NO)
[2022-09-21 05:51] LABS: ALBUMIN 3.5 g/dL (3.5-5.0); ALKALINE PHOSPHATASE 70 U/L (38-126); ANION GAP 12.7 MEQ/L (5-15); BLOOD UREA NITROGEN 13 mg/dL (7-17); CHLORIDE 102 mmol/L (98-107); Calcium 8.5 mg/dL (8.4-10.2); Carbon Dioxide 30 mmol/L (22-30); EST GLOMERULAR FILTRATION RATE > 60.0 ML/MIN; Glucose 107 mg/dL (74-106); Potassium 4.1 mmol/L (3.5-5.1); SGOT/AST 105 U/L (14-36); SGPT/ALT 50 U/L (0-35); SODIUM 141 mmol/L (137-145); Total Protein 6.4 g/dL (6.3-8.2)
[2022-09-21] MEDS ORDERED: MORPHINE SULFATE 2 MG INJ ONE (06:08)
[2022-09-21 06:30] VITALS: PULSE 53
--- NOTE | 2022-09-21 07:00 | XRAY ---
CLINICAL HISTORY:RUQ abd pain; COMPARISON:08/26/2022; TECHNIQUES:Multiple axial sections of the abdomen and pelvis were acquired without intravenous contrast administration; FINDINGS: Redeomonstration of Mildly enlarged liver measuring 17 cm in its maximum craniocaudal dimension on coronal images. Redemonstration of mildly enlarged spleen measuring 14.5 in its maximum dimension. Tiny focal parenchymal calcification noted. Both kidneys are normal in size, location, and axis. No calculus or hydronephrosis in either kidney. The unenhanced gallbladder, pancreas, and both adrenals appear unremarkable. Urinary bladder is empty. No acute bowel obstruction or ileus. The appendix is normal. Uterus and both ovaries appear within normal limits. No free fluid or free intraperitoneal air is noted. Redemonstration of soft tissue density nodule measuring 1.9 cm is seen at the right inferior abdominal wall. A well defined, ovoid hypodense lesion is seen anterior to the uterus. It measures 4.8 x 3.7cm. Multilevel thoracolumbar spondylosis. IMPRESSION: Mild hepatosplenomegaly ( stable ). No gallstones or free fluid or inflammatory changes. Redemonstration of soft tissue density nodule measuring 1.9 cm is seen at the right inferior abdominal wall. ( stable ). A well defined, ovoid hypodense lesion is seen anterior to the uterus. It measures 4.8 x 3.7cm. ( Stable on comparison ). Suggested contrast enhanced study with oral and IV conrast for further evaluation. Electronically Signed by: Marika Medina MD. (09/21/2022 05:56:25 [employer])
[2022-09-21 07:15] VITALS: O2SAT 97
[2022-09-21 07:31] VITALS: BP 121/71
== END 2022-09-21 07:36 | disposition home or self-care (01) ==
LOC: ED 04:48
DX: R10.11 Right upper quadrant pain (principal); R10.13 Epigastric pain; I10 Essential (primary) hypertension; Z79.899 Other long term (current) drug therapy; Z28.310 Unvaccinated for COVID-19
CPT/HCPCS: 36415; 74176; 80053; 81001; 84484; 85025; 87086; 93005; 96372; 99284; J2270

== ENCOUNTER 2022-12-18 19:09 | Emergency (ER) | payer OTHER ==
--- NOTE | 2022-12-18 19:15 | ERPHSYRPT ---
- History of Present Illness Time Seen by Provider: 12/18/22 19:15 Source: patient Exam Limitations: no limitations Physician History: This is an obese 37-year-old white female patient who complains of intermittent bilateral lower extremity/calf pain for the last 2 weeks. She is also noticed some central, substernal chest pains during this period time as well. She is not short of breath. She has had no fever. She denies cough. Patient has no documented cardiac history. She does have a history of hypertension, anxiety issues as well as arthritis. She has had no trauma to any extremity. Quality: intermittent, aching Severity of Pain-Max: mild (To moderate) Severity of Pain-Current: mild (To moderate) Lower Extremities Pain: leg: bilateral (Below the knee calves) Modifying Factors: Improves With: movement Associated Symptoms: none Allergies/Adverse Reactions: No Known Drug Allergies Allergy (Verified 12/18/22 19:28) Home Medications: cloNIDine HCL [Clonidine HCl] 0.1 mg PO TID 10/25/20 [History] Propranolol HCl [Propranolol HCl ER] 160 mg PO HS 03/21/22 [History] Hx Tetanus, Diphtheria Vaccination/Date Given: No (Unsure) Hx Influenza Vaccination/Date Given: No Hx Pneumococcal Vaccination/Date Given: No Travel Risk - International Travel Have you traveled outside of the country in past 3 weeks: No - Coronavirus Screening Are you exhibiting any of the following symptoms?: No - Vaccine Status Have you recieved a Covid-19 vaccination: No - Review of Systems Constitutional: No Symptoms Eyes: No Symptoms Ears, Nose, & Throat: No Symptoms Respiratory: No Symptoms Cardiac: Chest Pain (Intermittent, nonradiating central substernal chest twinges of sharp pains) Abdominal/Gastrointestinal: No Symptoms Genitourinary Symptoms: No Symptoms Musculoskeletal: Other (Achiness bilateral, below the knee calves) Skin: No Symptoms Neurological: No Symptoms Psychological: No Symptoms Endocrine: No Symptoms Hematologic/Lymphatic: No Symptoms Immunological/Allergic: No Symptoms All Other Systems: Reviewed and Negative - Past Medical History Pertinent Past Medical History: Yes Neurological History: No Pertinent History ENT History: Other Cardiac History: Hypertension Respiratory History: No Pertinent History Endocrine Medical History: No Pertinent History Musculoskeletal History: Arthritis GI Medical History: No Pertinent History History: No Pertinent History Psycho-Social History: Anxiety, Depression Female Reproductive Disorders: No Pertinent History Other Medical History: PCOS, enlarged spleen, ear infections - Past Surgical History Past Surgical History: Yes Neuro Surgical History: No Pertinent History Cardiac: No Pertinent History Respiratory: No Pertinent History Gastrointestinal: No Pertinent History Genitourinary: No Pertinent History Musculoskeletal: No Pertinent History Female Surgical History: Section, Tubal Ligation Other Surgical History: cyst removed off ovary - Social History Smoking Status: Never smoker Exposure to second hand smoke: No Drug Use: none Patient Lives Alone: Yes Significant Family History: no pertinent family hx - Nursing Vital Signs Nursing Vital Signs: Initial Vital Signs Temperature 98 F 12/18/22 19:28 Pulse Rate 68 12/18/22 19:28 Respiratory Rate 17 12/18/22 19:28 Blood Pressure 120/67 12/18/22 19:28 O2 Sat by Pulse Oximetry 98 12/18/22 19:28 Pain Scale Pain Intensity 6 - Physical Exam General Appearance: no apparent distress, alert, anxiety, obese Eyes, Ears, Nose, Throat Exam: normal ENT inspection, moist mucous membranes Neck Exam: normal inspection, non-tender, supple, full range of motion Cardiovascular/Respiratory Exam: chest non-tender (No pain at this time), normal breath sounds, heart sounds normal, no respiratory distress, normal peripheral pulses Gastrointestinal/Abdominal Exam: non-tender Back Exam: normal inspection, normal range of motion, No CVA tenderness, No vertebral tenderness Hips Exam: bilateral: non-tender, normal inspection, normal range of motion, no evidence of injury Legs Exam: bilateral leg: normal inspection, normal range of motion, no evidence of injury, soft tissue tenderness (Below the knee calf pain/achiness) Knees Exam: bilateral knee: non-tender, normal inspection, normal range of motion, no evidence of injury Ankle Exam: bilateral ankle: non-tender, normal inspection, normal range of motion, no evidence of injury Foot Exam: bilateral foot: non-tender, normal inspection, normal range of motion, no evidence of injury Neuro/Tendon Exam: normal sensation, normal motor functions, normal tendon functions, responds to pain, no evidence tendon injury Mental Status Exam: alert, oriented x 3, cooperative Skin Exam: normal color, warm, dry SpO2 Interpretation: normal O2 Delivery: Room Air - Course Nursing assessment & vital signs reviewed: Yes Ordered Tests: Active Orders 24 hr Category Date Time Status EKG-ER Only STAT Care 12/18/22 20:03 Active BMP Stat Lab 12/18/22 20:20 Completed CBC W DIFF Stat Lab 12/18/22 20:20 Completed D-DIMER QUANTITATIVE Stat Lab 12/18/22 20:20 Completed TROPONIN Q4H Lab 12/18/22 20:20 Received TROPONIN Q4H Lab 12/19/22 00:15 Ordered TROPONIN Q4H Lab 12/19/22 04:15 Ordered Medication Summary Discontinued Medications Generic Name Dose Route Start Last Admin Trade Name Jayla PRN Reason Stop Dose Admin Ibuprofen 600 mg 12/18/22 20:16 12/18/22 20:20 Ibuprofen 600 Mg Tablet PO 12/18/22 20:17 600 mg STAT ONE Administration Ibuprofen Confirm 12/18/22 20:20 Ibuprofen 600 Mg Tablet Administered 12/18/22 20:21 Dose 600 mg .ROUTE .STK-MED ONE Orphenadrine Citrate 100 mg 12/18/22 20:45 Orphenadrine Citrate 100 Mg Er Tab PO 12/18/22 20:46 STAT ONE Lab/Rad Data: Laboratory Result Diagrams 12/18/22 20:20 12/18/22 20:20 Laboratory Results 12/18/22 12/18/22 12/18/22 Range/Units 20:20 20:20 20:20 WBC 7.3 (4.0-10.5) x10^3/uL RBC 4.07 L (4.1-5.4) x10^6/uL Hgb 12.3 (12.0-16.0) g/dL Hct 38.4 (35-47) % MCV 94.3 (78-100) fL MCH 30.2 (26-32) pg MCHC 32.0 (32-36) g/dL RDW 12.9 (11.5-14.0) % Plt Count 269 (150-450) x10^3/uL MPV 10.5 (7.5-11.0) fL Gran % 46.3 (36.0-66.0) % Immature Gran % (Auto) 0.1 (0.00-0.4) % Nucleat RBC Rel Count 0.0 (0.00-0.1) % Eos # (Auto) 0.15 (0-0.5) x10^3/uL Immature Gran # (Auto) 0.01 (0.00-0.03) x10^3u/L Absolute Lymphs (auto) 3.14 (1.0-4.6) x10^3/uL Absolute Monos (auto) 0.61 (0.0-1.3) x10^3/uL Absolute Nucleated RBC 0.00 (0.00-0.01) x10^3u/L Lymphocytes % 42.8 (24.0-44.0) % Monocytes % 8.3 (0.0-12.0) % Eosinophils % 2.0 (0.00-5.0) % Basophils % 0.5 (0.0-0.4) % Absolute Granulocytes 3.39 (1.4-6.9) x10^3/uL Basophils # 0.04 (0-0.4) x10^3/uL D-Dimer 0.24 (0.0-0.50) mg/L Sodium 140 (137-145) mmol/L Potassium 4.3 (3.5-5.1) mmol/L Chloride 102 (98-107) mmol/L Carbon Dioxide 30 (22-30) mmol/L Anion Gap 11.8 (5-15) MEQ/L BUN 14 (7-17) mg/dL Creatinine 0.71 (0.52-1.04) mg/dL Estimated GFR > 60.0 ML/MIN Glucose 97 (74-106) mg/dL Calcium 8.6 (8.4-10.2) mg/dL - Progress Progress: improved, pain not gone completely Progress Note: 12/18/22 20:54 This patient's medical issue is 1 of low to moderate complexity. Level complexity and the work-up performed is based on reviewing the past medical history, reviewed the patient medication list, review of the patient's drug allergy list, history of present illness and physical findings on examination. The work-up in this patient includes twelve-lead EKG, CBC, BMP, D-dimer level and troponin level. I interpreted the twelve-lead EKG. There is no evidence of any acute emergency medical issue at this time. The patient does not have cellulitis, she has strong palpable pedal pulses bilaterally, there is no evidence of any acute trauma to her lower extremities. Patient has no chest pain at this time and her twelve-lead EKG shows no acute findings and her troponin level is normal. Patient will be discharged home with instructions to continue taking Tylenol and naproxen or ibuprofen for pain control. We will add Norflex medication to her pain control med regimen. Counseled pt/family regarding: lab results, diagnosis, need for follow-up Medical Desision Making - Diagnostic Testing Diagnostic test were ordered, analyzed, and reviewed by me: Yes - Risk of complications The pt has a mod risk of morbidity or mortality based on: Need for prescription drug management - Departure Departure Disposition: Home Clinical Impression: Leg pain, Chest pain Condition: Stable Critical Care Time: No Referrals: IVON CORDOVA FNP [Primary Care Provider] - Follow up/PCP as directed Additional Instructions: Take Tylenol, ibuprofen or naproxen plus the Norflex prescription that I remotely sent to your pharmacy for extremity pain control. Call your primary care provider tomorrow, 12/19/2022 to make arrangements for further evaluation management including further evaluation of your extremity aches and pains as well as the chest pain you have intermittently experienced. Prescriptions: Orphenadrine Citrate 100 mg [Norflex 100 MG Tablet] 100 mg PO BID #10 tab
[2022-12-18 19:43] VITALS: BP 120/67; TEMP 98; O2SAT 98
[2022-12-18] MEDS ORDERED: MOTRIN 600 MG PO ONE (20:16)
[2022-12-18] MEDS ORDERED: MOTRIN 600 MG ONE (20:20)
[2022-12-18 20:22] LABS: Absolute Neutrophil Ct (ANC) 3.39 x10^3/uL (1.4-6.9); BASOPHIL % 0.5 % (0.0-0.4); Basophil (Absolute #) 0.04 x10^3/uL (0-0.4); Eosinophil (Absolute #) 0.15 x10^3/uL (0-0.5); Hematocrit 38.4 % (35-47); Hemoglobin 12.3 g/dL (12.0-16.0); IMMATURE GRAN # 0.01 x10^3u/L (0.00-0.03); IMMATURE GRAN % 0.1 % (0.00-0.4); Lymphocyte (Absolute #) 3.14 x10^3/uL (1.0-4.6); Lymphocytes % 42.8 % (24.0-44.0); Mean Cell Volume 94.3 fL (78-100); Mean Corpuscular Hemoglobin 30.2 pg (26-32); Mean Platelet Volume 10.5 fL (7.5-11.0); Monocyte (Absolute #) 0.61 x10^3/uL (0.0-1.3); Monocytes % 8.3 % (0.0-12.0); Neutrophil % 46.3 % (36.0-66.0); Platelet Count 269 x10^3/uL (150-450); Red Blood Count 4.07 x10^6/uL (4.1-5.4); Red Cell Distribution Width 12.9 % (11.5-14.0); White Blood Count 7.3 x10^3/uL (4.0-10.5)
[2022-12-18 20:40] LABS: ANION GAP 11.8 MEQ/L (5-15); BLOOD UREA NITROGEN 14 mg/dL (7-17); CHLORIDE 102 mmol/L (98-107); Calcium 8.6 mg/dL (8.4-10.2); Carbon Dioxide 30 mmol/L (22-30); Creatinine 1 0.71 mg/dL (0.52-1.04); EST GLOMERULAR FILTRATION RATE > 60.0 ML/MIN; Glucose 97 mg/dL (74-106); Potassium 4.3 mmol/L (3.5-5.1); SODIUM 140 mmol/L (137-145)
[2022-12-18] MEDS ORDERED: Norflex 100 MG Tablet PO ONE ×2 (20:45→20:55)
[2022-12-18 21:11] VITALS: PULSE 72; RESP 18
== END 2022-12-18 21:11 | disposition home or self-care (01) ==
LOC: ED 19:09
DX: R07.9 Chest pain, unspecified (principal); M79.661 Pain in right lower leg; M79.662 Pain in left lower leg; I10 Essential (primary) hypertension; Z79.899 Other long term (current) drug therapy; Z28.310 Unvaccinated for COVID-19
CPT/HCPCS: 36415; 80048; 84484; 85025; 85379; 93005; 99283; A9270-GY